=== PATIENT | female | born 1930 | race Caucasian/White ===

== ENCOUNTER 2016-07-26 07:22 | Day surgery (SDC) | payer MEDICARE, BC ==
[2016-07-26] MEDS ORDERED: Sodium Chloride 0.9% 1,000 ML IV SCH (08:30)
[2016-07-26] MEDS ORDERED: Lidocaine 1% with EPINEPHrine 1:100,000 50 ML MDV ONE (08:38)
[2016-07-26] MEDS ORDERED: Bacitracin Oint 1 GM U/D Packet ONE (08:38)
[2016-07-26] MEDS ORDERED: ceFAZolin 2 GM in Sodium Chloride 0.9% 50 ML IV ONE (09:00)
[2016-07-26] MEDS ORDERED: ceFAZolin 2 GM in Premix Bag 1 BAG IV ONE (09:00)
[2016-07-26] MEDS ORDERED: fentaNYL 100 MCG/2 ML SDV ONE (09:16)
[2016-07-26] MEDS ORDERED: Propofol 200 MG/20 ML SDV ONE (09:16)
[2016-07-26] MEDS ORDERED: traMADol 50 MG Tab PO ONE (10:48)
[2016-07-26 11:28] VITALS: BP 155/70
--- NOTE | 2016-07-26 14:14 | OR ---
DATE OF PROCEDURE: 07/26/2016 PROCEDURE: Temporal artery biopsy, right. FINDINGS: Pulsatile artery, right, consistent with temporal artery. COMPLICATIONS: None. CLEARING INSPECTOR: None. 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 RISKS: Risks, benefits, alternatives, and limitations, including, but not limited to infection, bleeding, and requirement for reoperation were explained and they wished to proceed. PROCEDURE IN DETAIL: The patient was placed in supine position with head turned to the right. The skin was anesthetized with 1% lidocaine. A 15 blade was used to make a 1.5 cm incision in standard fashion. This was carried down with needlepoint electrocautery. The pulsatile temporal artery was identified in a classic location. This was suture ligated proximally and distally. This was transected and sent for specimen. This was inspected for evidence of bleeding which there was none. The wound was then closed with 2 layers of 3-0 Vicryl and one layer of 4-0 Vicryl after being irrigated. These were both in interrupted fashion. Dermabond was applied. The patient tolerated the procedure well. Adin Miller MD /[id number]
== END 2016-07-26 11:25 | disposition home or self-care (01) ==
LOC: JP.SDS 07:22
PROVIDERS: ATTEND Surgery
DX: M31.6 Other giant cell arteritis (principal)
CPT/HCPCS: 37609; 76942; 82962; A9270; J0690; J2704; J3010; J7040; J7050; 88305; 88313

== ENCOUNTER 2016-11-13 01:46 | Inpatient (IN) | payer MEDICARE, BC ==
[2016-11-13] MEDS ORDERED: Ondansetron 4 MG/2 ML SDV IVPUSH ONE (02:05)
[2016-11-13] MEDS ORDERED: HYDROmorphone 0.5 MG/0.5 ML Syringe IVPUSH ONE (02:05)
[2016-11-13] MEDS ORDERED: Sodium Chloride 0.9% 1,000 ML IV SCH (02:15)
--- NOTE | 2016-11-13 04:13 | EDM.PDOC ---
ED HPI GENERAL MEDICAL PROBLEM - General Chief Complaint: Abdominal Pain Stated Complaint: MEDICAL [facility] Time Seen by Provider: 11/13/16 01:48 Source of Information: Reports: Patient History Limitations: Reports: No Limitations - History of Present Illness INITIAL COMMENTS - FREE TEXT/NARRATIVE: History of present illness: [85-year-old female presenting with a progressive history of abdominal distention and pain for the last week. She's had some nausea with this but no fevers or chills no vomiting she wonders if she might be constipated she's not had a good bowel movement in 3 days. Denies any dysuria she's had no abdominal surgeries. 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 Also history of diabetes and hypertension.] Review of systems: As per history of present illness and below otherwise all systems reviewed and negative. Past medical history: As per history of present illness and as reviewed below otherwise noncontributory. Surgical history: As per history of present illness and as reviewed below otherwise noncontributory. Social history: No reported history of drug or alcohol abuse. Family history: As per history of present illness and as reviewed below otherwise noncontributory. Physical exam: Gen.: In spite her presentation she is a very pleasant woman and appears to be in no acute distress. HEENT: Atraumatic, normocephalic, pupils reactive, negative for conjunctival pallor or scleral icterus, mucous membranes moist, throat clear, neck supple, nontender, trachea midline. Lungs: Clear to auscultation initially but after a liter and a half of fluids she does have some crackles in her bases but continues to sat well. Heart: S1S2, regular, with a 2/6 systolic ejection murmur Abdomen: Abdomen is drum like and distended. Pelvis: Stable nontender. Genitourinary: Deferred. Rectal: Deferred. Extremities: Atraumatic, negative for cords or calf pain. Neurovascular unremarkable. Trace edema Neuro: Awake, alert, oriented. [place] Coma Scale 15 moving all extremities Exam nonfocal. Diagnostics: [CBC complete dental panel UA EKG are done as well as abdominal pelvic CT most concerning finding is the CT which demonstrates possible pneumatosis involving the cecum and ascending colon with mild dilation of the ascending colon to 9 cm and then circumferential wall thickening of the distal transverse and descending colon with pericolic fat stranding around the descending colon the radiologist feels these findings are underwriting service representative of either colitis or ischemia] Therapeutics: [She's received IV fluids and IV Dilaudid and is feeling more comfortable she's remained stable] Impression: [Acute surgical abdomen] Plan: [Dr. Miller's been contacted and is coming in to see this patient. I've ordered additional lab such as typing cross INR EKG has been done and shows evidence for possible old inferior infarct and a first-degree AV block she is in a sinus rhythm though with a rate of 77 no current ischemia or infarct is noted.] Definitive disposition and diagnosis as appropriate pending reevaluation and review of above. Abdominal Pain Score (Numeric/FACES): 7 - Related Data Allergies Allergy/AdvReac Type Severity Reaction Status Date / Time lisinopril AdvReac Cough Verified 07/26/16 07:58 Home Meds: Home Meds Aspirin [Aspirin EC] 81 mg PO DAILY 11/27/14 [History] Carvedilol 1.5625 mg PO BID 11/27/14 [History] Cyanocobalamin (Vitamin B-12) [Vitamin B-12] 1,000 mcg PO DAILY 11/27/14 [ History] Folic Acid 1 mg PO DAILY 11/27/14 [History] Insulin Aspart [NovoLOG] 6 unit SQ PCDINNER 11/27/14 [History] Insulin Aspart [NovoLOG] 8 units SQ PCLUNCH 11/27/14 [History] Insulin Detemir [Levemir] 18 unit SQ QPM 11/27/14 [History] Pravastatin [Pravachol] 10 mg PO BEDTIME 11/27/14 [History] levETIRAcetam [Keppra] 250 mg PO BID 11/27/14 [History] Calcium Carbonate/Vitamin D3 [Calcium 600 + Vit D 200] 1 each PO DAILY 07/25/16 [History] Valsartan [Diovan] 40 mg PO DAILY 07/25/16 [History] predniSONE [Deltasone] 40 mg PO DAILY 07/25/16 [History] traMADol HCl [Ultram] 50 mg PO ASDIRECTED PRN 07/25/16 [History] Capsaicin [Zostrix 0.025% Crm] 60 gm .XX QID 11/13/16 [History] Ferrous Sulfate 325 mg PO ACBREAKFAST 11/13/16 [History] Insulin Aspart [NovoLOG] 10 units SUBCUT ACBREAKFAST 11/13/16 [History] Insulin Detemir [Levemir Flextouch] 14 unit SQ QAM 11/13/16 [History] Sennosides/Docusate Sodium [Sennosides-Docusate Sodium] 1 tab PO BID 11/13/16 [ History] Past Medical History HEENT History: Reports: Allergic Rhinitis, Cataract, Impaired Vision Cardiovascular History: Reports: Bypass, CAD, Heart Failure, Heart Murmur, High Cholesterol, Hypertension, SOB on Exertion Respiratory History: Reports: COPD, SOB Gastrointestinal History: Reports: None Genitourinary History: Reports: UTI, 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: Musculoskeletal History: Reports: Fracture, Osteoporosis Other Musculoskeletal History: 1996 Neurological History: Reports: Headaches, Chronic, Seizure, Vertigo Endocrine/Metabolic History: Reports: Diabetes, Type II, IDDM, Obesity/BMI 30+ Hematologic History: Reports: Anemia, Blood Transfusion(s) - Infectious Disease History Infectious Disease History: Reports: Chicken Pox, Measles, Mumps - Past Surgical History Cardiovascular Surgical History: Reports: Coronary Artery Bypass Respiratory Surgical History: Reports: None GI Surgical History: Reports: Colonoscopy Musculoskeletal Surgical History: Reports: Hip Replacement Social & Family History - Tobacco Use Smoking Status *Q: Never Smoker Second Hand Smoke Exposure: No - Caffeine Use Caffeine Use: Reports: Coffee - Alcohol Use Days Per Week of Alcohol Use: 0 - Recreational Drug Use Recreational Drug Use: No - Living Situation & Occupation Living situation: Reports: ED ROS GENERAL - Review of Systems Review Of Systems: ROS reveals no pertinent complaints other than HPI. ED EXAM, GI/ABD - Physical Exam Exam: See Below Course - Vital Signs Last Recorded V/S: Last Vital Signs Temp 36.6 C 11/13/16 03:59 Pulse 77 11/13/16 03:59 Resp 18 11/13/16 03:59 BP 140/70 11/13/16 03:59 Pulse Ox 94 L 11/13/16 03:59 - Orders/Labs/Meds Orders: Active Orders 24 hr Category Date Time Status EKG Documentation Completion [RC] ASDIRECTED Care 11/13/16 04:08 Ordered Abdomen Pelvis wo Cont [CT] Stat Exams 11/13/16 02:52 Taken Chest 1V Frontal [CR] Stat Exams 11/13/16 04:07 Ordered INR,PT,PROTHROMBIN TIME [COAG] Stat Lab 11/13/16 04:07 Ordered TROPONIN I [CHEM] Stat Lab 11/13/16 04:07 Ordered TYPE AND SCREEN [BBK] Stat Lab 11/13/16 04:09 Ordered UA W/MICROSCOPIC [URIN] Stat Lab 11/13/16 02:02 Uncollected Sodium Chloride 0.9% [Normal Saline] 1,000 ml Med 11/13/16 02:15 Active IV ASDIRECTED EKG 12 Lead [EK] Stat Ther 11/13/16 04:07 Ordered Medication Orders Sodium Chloride (Normal Saline) 1,000 mls @ 200 mls/hr IV ASDIRECTED JOHN Last Admin: 11/13/16 02:19 Dose: 200 mls/hr Labs: Laboratory Tests 11/13/16 11/13/16 11/13/16 Range/Units 02:16 02:16 02:16 WBC 13.1 H (4.5-11.0) K/uL RBC 3.50 (3.30-5.50) M/uL Hgb 9.7 L (12.0-15.0) g/dL Hct 31.0 L (36.0-48.0) % MCV 89 (80-98) fL MCH 28 (27-31) pg MCHC 31 L (32-36) % Plt Count 333 (150-400) K/uL Neut % (Auto) 84 H (36-66) % Lymph % (Auto) 7 L (24-44) % [place] % (Auto) 8 H (2-6) % Eos % (Auto) 1 L (2-4) % Baso % (Auto) 0 (0-1) % Sodium 134 L (140-148) mmol/L Potassium 4.0 (3.6-5.2) mmol/L Chloride 100 (100-108) mmol/L Carbon Dioxide 21 (21-32) mmol/L Anion Gap 17.0 H (5.0-14.0) mmol/L BUN 30 H (7-18) mg/dL Creatinine 1.5 H (0.6-1.0) mg/dL Est Cr Clr Drug Dosing 21.11 mL/min Estimated GFR (MDRD) 33 L (>60) Glucose 214 H (74-106) mg/dL Lactic Acid (0.4-2.0) mmol/L Calcium 7.9 L (8.5-10.1) mg/dL Total Bilirubin 0.5 (0.2-1.0) mg/dL AST 10 L (15-37) U/L ALT 11 L (12-78) U/L Alkaline Phosphatase 98 (46-116) U/L Total Protein 6.6 (6.4-8.2) g/dL Albumin 2.5 L (3.4-5.0) g/dL Globulin 4.1 H (2.3-3.5) g/dL Albumin/Globulin Ratio 0.6 L (1.2-2.2) Amylase 21 L (25-115) U/L Lipase 165 (73-393) U/L 11/13/16 Range/Units 02:16 WBC (4.5-11.0) K/uL RBC (3.30-5.50) M/uL Hgb (12.0-15.0) g/dL Hct (36.0-48.0) % MCV (80-98) fL MCH (27-31) pg MCHC (32-36) % Plt Count (150-400) K/uL Neut % (Auto) (36-66) % Lymph % (Auto) (24-44) % [place] % (Auto) (2-6) % Eos % (Auto) (2-4) % Baso % (Auto) (0-1) % Sodium (140-148) mmol/L Potassium (3.6-5.2) mmol/L Chloride (100-108) mmol/L Carbon Dioxide (21-32) mmol/L Anion Gap (5.0-14.0) mmol/L BUN (7-18) mg/dL Creatinine (0.6-1.0) mg/dL Est Cr Clr Drug Dosing mL/min Estimated GFR (MDRD) (>60) Glucose (74-106) mg/dL Lactic Acid 2.1 H (0.4-2.0) mmol/L Calcium (8.5-10.1) mg/dL Total Bilirubin (0.2-1.0) mg/dL AST (15-37) U/L ALT (12-78) U/L Alkaline Phosphatase (46-116) U/L Total Protein (6.4-8.2) g/dL Albumin (3.4-5.0) g/dL Globulin (2.3-3.5) g/dL Albumin/Globulin Ratio (1.2-2.2) Amylase (25-115) U/L Lipase (73-393) U/L Meds: Medications Generic Name Dose Route Start Last Admin Trade Name Freq PRN Reason Stop Dose Admin Sodium Chloride 1,000 mls @ 200 mls/hr 11/13/16 02:15 11/13/16 02:19 Normal Saline IV 200 mls/hr ASDIRECTED JOHN Administration Discontinued Medications Generic Name Dose Route Start Last Admin Trade Name Freq PRN Reason Stop Dose Admin Hydromorphone HCl 0.5 mg 11/13/16 02:05 11/13/16 02:18 Dilaudid IVPUSH 11/13/16 02:06 0.5 mg ONETIME ONE Administration Ondansetron HCl 4 mg 11/13/16 02:05 11/13/16 02:17 Zofran IVPUSH 11/13/16 02:06 4 mg ONETIME ONE Administration Departure - Departure Time of Disposition: 04:21 Disposition: Admitted As Inpatient 65 Condition: Fair Clinical Impression: Surgical abdomen - Discharge Information Forms: ED Department Discharge - My Orders Last 24 Hours: My Active Orders 11/13/16 02:02 UA W/MICROSCOPIC [URIN] Stat 11/13/16 02:15 Sodium Chloride 0.9% [Normal Saline] 1,000 ml IV ASDIRECTED 11/13/16 02:52 Abdomen Pelvis wo Cont [CT] Stat 11/13/16 04:07 Chest 1V Frontal [CR] Stat INR,PT,PROTHROMBIN TIME [COAG] Stat TROPONIN I [CHEM] Stat EKG 12 Lead [EK] Stat 11/13/16 04:08 EKG Documentation Completion [RC] ASDIRECTED 11/13/16 04:09 TYPE AND SCREEN [BBK] Stat - Assessment/Plan Last 24 Hours: My Active Orders 11/13/16 02:02 UA W/MICROSCOPIC [URIN] Stat 11/13/16 02:15 Sodium Chloride 0.9% [Normal Saline] 1,000 ml IV ASDIRECTED 11/13/16 02:52 Abdomen Pelvis wo Cont [CT] Stat 11/13/16 04:07 Chest 1V Frontal [CR] Stat INR,PT,PROTHROMBIN TIME [COAG] Stat TROPONIN I [CHEM] Stat EKG 12 Lead [EK] Stat 11/13/16 04:08 EKG Documentation Completion [RC] ASDIRECTED 11/13/16 04:09 TYPE AND SCREEN [BBK] Stat
[2016-11-13] MEDS ORDERED: Rocuronium 50 MG/5 ML Vial ONE (05:26)
[2016-11-13] MEDS ORDERED: Propofol 200 MG/20 ML SDV ONE (05:26)
[2016-11-13] MEDS ORDERED: Neostigmine Methylsulfate 1 MG/ML 5 ML Syringe ONE (05:26)
[2016-11-13] MEDS ORDERED: Glycopyrrolate 0.2 MG/ML 5 ML MDV ONE (05:26)
[2016-11-13] MEDS ORDERED: Succinylcholine 200 MG/10 ML MDV ONE (05:26)
[2016-11-13] MEDS ORDERED: Ondansetron 4 MG/2 ML SDV ONE (05:26)
[2016-11-13] MEDS ORDERED: Dexamethasone 4 MG/ML SDV ONE (05:26)
[2016-11-13] MEDS ORDERED: metroNIDAZOLE/Normal Saline 100 ML ONE (05:38)
[2016-11-13] MEDS ORDERED: ePHEDrine 50 MG/ML SDV ONE (05:56)
[2016-11-13] MEDS ORDERED: Docusate Sodium 100 MG Cap PO PRN (07:56)
[2016-11-13] MEDS ORDERED: Benzocaine/Cetylpyridinium/Menthol Lozenge MUCMEM PRN (07:56)
[2016-11-13] MEDS ORDERED: Zolpidem 5 MG Tab PO PRN (07:56)
[2016-11-13] MEDS ORDERED: diphenhydrAMINE 50 MG/ML SDV IVPUSH PRN (07:56)
[2016-11-13] MEDS ORDERED: Metoclopramide 10 MG/2 ML SDV IV PRN (07:56)
[2016-11-13] MEDS ORDERED: Bisacodyl 5 MG Tab PO PRN (07:56)
[2016-11-13] MEDS ORDERED: ceFAZolin 2 GM in Sodium Chloride 0.9% 100 ML IV SCH (08:00)
[2016-11-13] MEDS ORDERED: Piperacillin/Tazobactam/Dext 3.375 GM in Premix Bag 1 BAG IV SCH (08:00)
--- NOTE | 2016-11-13 08:25 | CR ---
Cardiomegaly. Low lung volumes. The lowest sternotomy wire again appears broken. Nodular densities a re similar compared to 12/27/2010. Difficult to exclude mild interstitial edema. Difficult to exclude an additional nodular density left midlung zone. Would first recommend this be followed with a two- view chest x-ray with improved inspiratory effort. Patient has history of calcified pleural plaques.
[2016-11-13] MEDS ORDERED: Naloxone 0.4 MG/ML SDV IV PRN (10:45)
--- NOTE | 2016-11-13 11:01 | PCM.CONS ---
H&P History of Present Illness - General Date of Service: 11/13/16 Admit Problem/Dx: Admission Diagnosis/Problem Admission Diagnosis/Problem Colon distention Source of Information: Patient, Family, Provider History Limitations: Reports: No Limitations - History of Present Illness Initial Comments - Free Text/Narative: Vicky was admitted to the intensive care unit after surgery early this morning. I was asked to see her by Dr. Miller regarding medical management of diabetes, coronary artery disease and chronic kidney disease. She was taken to the operating room from the emergency room after presenting with abdominal pain. CT scan suggested pneumatosis of the right colon as well as an area of inflammation such as colitis or ischemic colitis in the left colon. The exploratory laparotomy revealed ischemia of the right colon as well as a masslike conglomeration in the left colon concerning for neoplasm or possibly infection. 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 Patient has been clinically stable since that time. She reports minimal abdominal pain at this time. She has not had any shortness of breath or chest pain. Vital signs have been stable including blood pressure and heart rate. Urine output has been acceptable. DONTE drains are draining only slightly pink tinged serosanguineous fluid. Minimal output into her ileostomy at this time. Abdominal Pain Score (Numeric/FACES): 0 - Related Data Allergies/Adverse Reactions: Allergies Allergy/AdvReac Type Severity Reaction Status Date / Time lisinopril AdvReac Cough Verified 07/26/16 07:58 Home Medications: Home Meds Aspirin [Aspirin EC] 81 mg PO DAILY 11/27/14 [History] Carvedilol 1.5625 mg PO BID 11/27/14 [History] Cyanocobalamin (Vitamin B-12) [Vitamin B-12] 1,000 mcg PO DAILY 11/27/14 [ History] Folic Acid 1 mg PO DAILY 11/27/14 [History] Insulin Aspart [NovoLOG] 6 unit SQ PCDINNER 11/27/14 [History] Insulin Aspart [NovoLOG] 8 units SQ PCLUNCH 11/27/14 [History] Insulin Detemir [Levemir] 18 unit SQ QPM 11/27/14 [History] Pravastatin [Pravachol] 10 mg PO BEDTIME 11/27/14 [History] levETIRAcetam [Keppra] 250 mg PO BID 11/27/14 [History] Calcium Carbonate/Vitamin D3 [Calcium 600 + Vit D 200] 1 each PO DAILY 07/25/16 [History] Valsartan [Diovan] 40 mg PO DAILY 07/25/16 [History] predniSONE [Deltasone] 40 mg PO DAILY 07/25/16 [History] traMADol HCl [Ultram] 50 mg PO ASDIRECTED PRN 07/25/16 [History] Capsaicin [Zostrix 0.025% Crm] 60 gm .XX QID 11/13/16 [History] Ferrous Sulfate 325 mg PO ACBREAKFAST 11/13/16 [History] Insulin Aspart [NovoLOG] 10 units SUBCUT ACBREAKFAST 11/13/16 [History] Insulin Detemir [Levemir Flextouch] 14 unit SQ QAM 11/13/16 [History] Sennosides/Docusate Sodium [Sennosides-Docusate Sodium] 1 tab PO BID 11/13/16 [ History] Past Medical History HEENT History: Reports: Allergic Rhinitis, Cataract, Impaired Vision Cardiovascular History: Reports: Bypass, CAD, Heart Failure, Heart Murmur, High Cholesterol, Hypertension, SOB on Exertion Respiratory History: Reports: COPD, SOB Gastrointestinal History: Reports: None Genitourinary History: Reports: UTI, 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: Musculoskeletal History: Reports: Fracture, Osteoporosis Other Musculoskeletal History: 1996 Neurological History: Reports: Headaches, Chronic, Seizure, Vertigo Endocrine/Metabolic History: Reports: Diabetes, Type II, IDDM, Obesity/BMI 30+ Hematologic History: Reports: Anemia, Blood Transfusion(s) - Infectious Disease History Infectious Disease History: Reports: Chicken Pox, Measles, Mumps - Past Surgical History Cardiovascular Surgical History: Reports: Coronary Artery Bypass Respiratory Surgical History: Reports: None GI Surgical History: Reports: Colonoscopy Musculoskeletal Surgical History: Reports: Hip Replacement Social & Family History - Family History Cardiac: Denies: CAD - Tobacco Use Smoking Status *Q: Never Smoker Second Hand Smoke Exposure: No - Caffeine Use Caffeine Use: Reports: Coffee - Alcohol Use Days Per Week of Alcohol Use: 0 - Recreational Drug Use Recreational Drug Use: No - Living Situation & Occupation Living situation: Reports: H&P Review of Systems - Review of Systems: Review Of Systems: See Below Free Text/Narrative: A complete 12 point review of systems was obtained. Pertinent positives and negatives are noted in the history of present illness. All other systems were reviewed and were negative except as noted. Exam - Exam Exam: See Below - Vital Signs Vital Signs: Last Vital Signs Temp 36.6 C 11/13/16 03:59 Pulse 77 11/13/16 03:59 Resp 18 11/13/16 03:59 BP 140/70 11/13/16 03:59 Pulse Ox 94 L 11/13/16 03:59 Weight: 91.1 kg - Exam Quality Assessment: Supplemental Oxygen General: Alert, Oriented, Cooperative. No: Mild Distress HEENT: Conjunctiva Clear. No: Mucosa Moist & [place] (dry), Scleral Icterus Neck: Supple, Trachea Midline. No: Lymphadenopathy Lungs: Clear to Auscultation, Normal Respiratory Effort, Decreased Breath Sounds (mild at bases) Cardiovascular: Regular Rate, Regular Rhythm, Systolic Murmur GI/Abdominal Exam: No Distention, Tender, Abnormal Bowel Sounds (hypoactive), Other (ileostomy RLQ with trace bloody fluid in the bag. 2 DONTE drains with light pink drainage ) Extremities: Pedal Edema (trace bilateral ankle edema). No: Increased Warmth Peripheral Pulses: 1+: Dorsalis Pedis (L), Dorsalis Pedis (R) Skin: Warm, Dry Neuro Extensive - Mental Status: Alert, Oriented x3, Nl Response to Commands Neuro Extensive - Motor, Sensory, Reflexes: CN II-XII Intact. No: Dysarthria, Abnormal Motor, Tremor Psychiatric: Alert, Normal Affect - Patient Data Lab Results Last 24 hrs: Laboratory Results - last 24 hr 11/13/16 Range/Units 09:55 Urine Color Yellow Urine Appearance Turbid Urine pH 6.0 (4.5-8.0) Ur Specific [place] 1.020 (1.008-1.030) Urine Protein 30 H (NEGATIVE) mg/dL Urine Glucose (UA) Normal (NEGATIVE) mg/dL Urine Ketones Negative (NEGATIVE) mg/dL Urine Occult Blood Moderate (NEGATIVE) Urine Nitrite Negative (NEGATIVE) Urine Bilirubin Small (NEGATIVE) Urine Urobilinogen 1 (NORMAL) mg/dL Ur Leukocyte Esterase Large (NEGATIVE) Urine RBC 5-10 H (0-5) Urine WBC Packed H (0-5) Ur Epithelial Cells Moderate Amorphous Sediment Not seen Urine Bacteria Many Urine Mucus Rare Result Diagrams: 11/13/16 02:16 11/13/16 02:16 Imaging Impressions Last 24 hrs: CT abd/pelvis - images personally reviewed and radiologist's interpretation noted - probable pneumatosis of the cecum and ascending colon concerning for ischemia. Descending colon with wall thickening and surrounding fat stranding concerning for colitis or ischemia. Consult PN Assessment/Plan POD#: 0 Procedures: Procedures ASSAY OF MAGNESIUM (11/27/14) ASSAY THYROID STIM HORMONE (11/27/14) C-REACTIVE PROTEIN (11/27/14) COMPLETE CBC AUTOMATED (11/27/14) COMPLETE CBC W/AUTO DIFF WBC (11/27/14) COMPREHEN METABOLIC PANEL (11/27/14) CT HEAD/BRAIN W/O DYE (01/06/15) ECHO GUIDE FOR BIOPSY (07/26/16) EMERGENCY DEPT VISIT (05/11/15) EMERGENCY DEPT VISIT (05/11/15) EMERGENCY DEPT VISIT (01/06/15) EMERGENCY DEPT VISIT (01/06/15) EMERGENCY DEPT VISIT (11/27/14) EXTRACRANIAL BILAT STUDY (11/03/15) GAIT TRAINING THERAPY (11/27/14) GLUCOSE BLOOD TEST (07/26/16) INITIAL OBSERVATION CARE (11/27/14) LYME DISEASE ANTIBODY (11/27/14) METABOLIC PANEL TOTAL CA (11/27/14) OBSERVATION CARE DISCHARGE (11/27/14) PT EVALUATION (11/27/14) RBC SED RATE NONAUTOMATED (11/27/14) ROUTINE VENIPUNCTURE (11/27/14) SUBSEQUENT OBSERVATION CARE (11/27/14) TEMPORAL ARTERY PROCEDURE (07/26/16) THER/PROPH/DIAG INJ IV PUSH (11/27/14) THER/PROPH/DIAG INJ SC/IM (11/27/14) THERAPEUTIC ACTIVITIES (11/27/14) THERAPEUTIC EXERCISES (11/27/14) TX/PRO/DX INJ NEW DRUG ADDON (11/27/14) TX/PRO/DX INJ SAME DRUG PUPPET DEVELOPER (11/27/14) URINALYSIS AUTO W/SCOPE (11/27/14) VARICELLA-ZOSTER ANTIBODY (11/27/14) VITAMIN B-12 (11/27/14) (1) Pneumatosis intestinalis of large intestine SNOMED Code(s): 912201073 Code(s): K63.89 - OTHER SPECIFIED DISEASES OF INTESTINE Current Visit: Yes (2) Stage III chronic kidney disease SNOMED Code(s): 373024555 Code(s): N18.3 - CHRONIC KIDNEY DISEASE, STAGE 3 (MODERATE) Current Visit: Yes (3) Diabetes 1.5, managed as type 2 SNOMED Code(s): 077499557 Code(s): E13.9 - OTHER SPECIFIED DIABETES MELLITUS WITHOUT COMPLICATIONS Priority: Medium Current Visit: No (4) CAD (coronary artery disease), [place] coronary artery SNOMED Code(s): 3911110492477 Code(s): I25.10 - ATHSCL HEART DISEASE OF [place] CORONARY ARTERY W/O ANG PCTRS Priority: Low Current Visit: No Qualifiers: [place] vs. transplanted heart: [place] heart Associated angina: without angina Qualified Code(s): I25.10 - Atherosclerotic heart disease of [place] coronary artery without angina pectoris Problem List Initiated/Reviewed/Updated: Yes My Orders Last 24 Hours: My Active Orders 11/13/16 08:39 Blood Glucose Check, Bedside [RC] QIDACANDBED 11/13/16 08:40 Communication Order [RC] PRN Communication Order [RC] PRN Diabetes Education [RC] Click to Edit Notify Provider [RC] PRN 11/13/16 10:54 CULTURE URINE [RM] Routine 11/13/16 11:00 Insulin Aspart [NovoLOG] See Protocol SUBCUT QIDACANDBED Plan: Assessment and plan - Abdominal pain with concern for ischemic colitis - status post portray laparotomy with subtotal colectomy and ileostomy formation. Pathology pending. Clinically stable since the time of surgery. Volume status seems appropriate at this time. -Postop cares per surgical team -Agree with ongoing IV fluids Insulin-dependent diabetes mellitus - patient is nothing by mouth currently and a sliding scale insulin will be utilized throughout the day today. We may need to add some long-acting insulin once dextrose was added to her IV fluids. -Low-dose sliding scale insulin -Restart long-acting as indicated based on blood sugar trend Coronary artery disease - History of CABG a few years ago. No active ischemic symptoms and clinically stable. -Restart medical management including beta cassie as soon as it is safe postoperatively, hopefully tomorrow Stage III chronic kidney disease - [place] a level near baseline at this time. Urine output so far has been acceptable. -Close monitoring of urine output -Labs in the morning Disposition - anticipate discharge to home after the hospital stay Fernando Milan M.D. Requesting Provider: Dr Miller Date Consult Requested: 11/13/16 Reason for Consult: medical management of diabetes and CAD Patient History Reviewed: Yes Admission H&P Reviewed: No (n/a) Notified Requestor: No Time Spent (in minutes): 40
[2016-11-13] MEDS: Insulin Aspart 100 Units/ML 3 ML Pen SUBCUT SCH ×3 (12:27→19:55)
[2016-11-13] MEDS: Piperacillin/Tazobactam 2.25 GM in Sodium Chloride 0.9% 50 ML IV SCH ×2 (14:12→19:48)
[2016-11-13] MEDS: Sodium Chloride 0.9% 1,000 ML IV SCH (19:46)
[2016-11-13] MEDS ORDERED: Sodium Chloride 0.9% 500 ML IV ONE (22:13)
[2016-11-14] MEDS: Piperacillin/Tazobactam 2.25 GM in Sodium Chloride 0.9% 50 ML IV SCH ×4 (01:23→19:51)
[2016-11-14] MEDS: Sodium Chloride 0.9% 1,000 ML IV SCH ×3 (03:47→22:41)
[2016-11-14] MEDS ORDERED: Sodium Chloride 0.9% 500 ML IV ONE (06:12)
[2016-11-14] MEDS: Insulin Aspart 100 Units/ML 3 ML Pen SUBCUT SCH ×4 (06:28→20:54)
--- NOTE | 2016-11-14 07:31 | CONS ---
DATE OF SERVICE: 11/13/2016 REFERRING PHYSICIAN: CONSULTING PHYSICIAN: Adin Miller MD REASON FOR CONSULTATION: Abdominal pain. HISTORY OF PRESENT ILLNESS: An 85-year-old female with an ongoing history of abdominal pain, that has progressed over the last approximately 5 days. The patient reports she has not had bowel movement for greater than 4 to 5 days. She has some nausea. This is a new problem for her. PAST MEDICAL HISTORY: Significant for coronary bypass x4 approximately five years ago, cataract, heart failure, heart murmur, hypercholesterolemia, hypertension, shortness of breath (of note, the patient does not walk due to orthopedic reasons so fitness assessment cannot be determined), history of UTI, osteoporosis, type 2 diabetes, anemia, COPD, shortness of breath, history of chicken pox, measels, mumps . PAST SURGICAL HISTORY: Ankle surgery, hip surgery, CABG surgery as described above. SOCIAL HISTORY: She is and lives at home. FAMILY HISTORY: Noncontributory. REVIEW OF SYSTEMS: GENERAL: The patient is described as above. CARDIOVASCULAR: Mild cardial infarction [place] as above. RESPIRATORY: COPD as above. GASTROINTESTINAL: As above. GENITOURINARY: History of urinary tract infections. ENDOCRINE: Diabetes. NEUROLOGICAL: History of stroke with left hand weakness. PSYCH: No symptoms. The remainder of review of systems is reviewed and is negative. PHYSICAL EXAMINATION: VITAL SIGNS: Temperature 97.9, blood pressure 140/70, pulse 77, respirations 18, 94% on room air. GENERAL: The patient is resting with appropriate abdominal distention. HEENT: Pupils are equal. NECK: Supple. LUNGS: Wheezes bilaterally. HEART: Regular rhythm and rate. ABDOMEN: Distended, rebound, guarding. EXTREMITIES: Full range of motion. NEUROLOGIC: Alert and oriented x3. PSYCH: No gross depression. LABORATORY RESULTS: Show white blood cell count 40699, hemoglobin 9.7. Sodium 134, creatinine 1.5. Lactic acid 2.1. IMAGING: I did review the CT scan, which shows thickening of the transverse colon, sigmoid, and descending colon. ASSESSMENT AND PLAN: To the operating room for exploratory laparotomy. PLAN: The patient and I discussed risks, benefits, alternatives, and limitations, including, but not limited to infection and bleeding. We also discussed the possibility and probability of ostomy bowel resection, sepsis, sudden cardiac , respiratory failure, and other risks. We also discussed DNR type status. The patient was explained if she remains on the ventilator, would she like to stay on this short-term; the answer was yes. She states she does not have a living will or advanced directives. The patient will be taken to the operating room on an emergency basis. Adin Miller MD /[id number]
--- NOTE | 2016-11-14 07:34 | OR ---
DATE OF PROCEDURE: 11/14/2016 PROCEDURE: 1. 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 2. Colonoscopy (69619). 3. Mobilization of splenic flexure during the colon resection (12343). COMPLICATIONS: None. RESEARCH AND DEVELOPMENT ENGINEER: None. ANESTHESIA: General. INDICATIONS: An 85-year-old female, presents with an acute bowel obstruction pending perforation. Risks, benefits, alternatives, and limitations, including, but not limited to infection, bleeding, perforation, ostomy formation, cardiovascular failure including were explained to the patient. We also discussed this was an emergency surgery and due to her high of comorbidities, diabetes, stroke, CHF, COPD, and history of myocardial infarction; she has a high chance of morbidity. PROCEDURE IN DETAIL: The patient was placed in supine position. A midline abdominal incision was made. This was opened with electrocautery to the peritoneum which was opened sharply. A finger sweep technique was performed and no abnormalities noted. The abdomen was entered. Immediately, it was noted the colon was a "megacolon" with a diameter larger than 12 cm throughout entire colon. Also of note, there was a serosal tear/pending perforation noted of the cecum and the transverse colon. Furthermore, there is a density of the sigmoid colon. It was of unknown etiology. Therefore at this time, the colonoscope was introduced and advanced to evaluate this. The patient was obviously un prepped and the scope was unable to be advanced to approximately 30 cm. At this point, the decision between a colectomy and subtotal colectomy and a partial colectomy was made. Due to the patient's two perforations in two separate parts of the colon and the unknown mass or diverticulitis in the sigmoid colon, decision was made to perform a subtotal colectomy with ileostomy. This decision was based upon the safety of the patient and her comorbidities that she would not be able to tolerate a second surgery if required. Therefore, subtotal colectomy was commenced. Colon will be mobilized first by transecting the cecum with a blue load stapler and subsequent white load staplers with a combination with Harmonic Scalpel. The duodenum was identified and deflected away, not interactive with any way. A combination of white stapler and blue stapler loads were used to transect the relationship between the stomach and the transverse colon, the mesentery and its associated vascularity. This was then dissected down into the pelvis. The fallopian tube was noted to be adhered to the sigmoid colon. It was still unclear if this is a malignancy or chronic diverticulosis/diverticulitis as diverticula were noted during the colonoscope. A black load stapler would be used to transect the rectum. Of note, there was still inflammation left, this was not dissected due to the unknown etiology of this and the lack of availability of pathological diagnoses. This specimen was then sent for pathological evaluation. The abdomen was thoroughly irrigated. There was very minimal bleeding noted. Just that I did clear one layer of warm irrigation. The liver was swept and no masses were noted. There was no peritoneal studding noted. The fascia was then closed with #1 Vicryl in a running fashion. The subcutaneous tissues were irrigated and drain was placed over this. Phyllis were applied and dressings were applied. The ileostomy was then created in a standard fashion prior to closure of the abdominal wall. A 15 blade was used to create an ostomy location about the size 50 cent piece or so. Three fingers were passed through the abdominal wall. An ileostomy was procured through the abdominal wall. Once the abdomen was closed, this was created using interrupted Vicryl sutures after opening up the ileostomy. This was carried on the right side due to the location of the ilium and the reluctance to mobilize or resect any further vascular supply in the abdomen to move it to the left. Once this was created, a bag was placed on the ostomy. The patient was transferred to the intensive care unit. Adin Miller MD /[id number]
[2016-11-14] MEDS ORDERED: fentaNYL 100 MCG/2 ML SDV ONE (08:47)
[2016-11-14] MEDS ORDERED: Propofol 200 MG/20 ML SDV ONE (08:48)
--- NOTE | 2016-11-14 09:26 | PCM.SURGPN ---
[id number]: No Symptoms HEENT: Reports: No Symptoms - Patient Data Vitals - Most Recent: Last Vital Signs Temp 97.2 F 11/14/16 09:15 Pulse 68 11/14/16 09:20 Resp 18 11/14/16 09:20 BP 101/34 L 11/14/16 09:20 Pulse Ox 100 11/14/16 09:20 Weight - Most Recent: 91.1 kg I&O - Last 24 Hours: Intake & Output 11/13/16 11/14/16 11/14/16 22:59 06:59 14:59 Intake Total 1250 2397 Output Total 405 385 Balance 845 2011 Lab Results Last 24 Hrs: Laboratory Results - last 24 hr 11/13/16 11/14/16 11/14/16 Range/Units 09:55 04:40 04:40 WBC 9.5 (4.5-11.0) K/uL RBC 2.92 L (3.30-5.50) M/uL Hgb 8.0 L (12.0-15.0) g/dL Hct 26.0 L (36.0-48.0) % MCV 89 (80-98) fL MCH 27 (27-31) pg MCHC 31 L (32-36) % Plt Count 298 (150-400) K/uL Sodium 138 L (140-148) mmol/L Potassium 4.3 (3.6-5.2) mmol/L Chloride 107 (100-108) mmol/L Carbon Dioxide 22 (21-32) mmol/L Anion Gap 13.3 (5.0-14.0) mmol/L BUN 32 H (7-18) mg/dL Creatinine 1.5 H (0.6-1.0) mg/dL Est Cr Clr Drug Dosing 21.11 mL/min Estimated GFR (MDRD) 33 L (>60) Glucose 239 H (74-106) mg/dL Calcium 7.1 L (8.5-10.1) mg/dL Urine Color Yellow Urine Appearance Turbid Urine pH 6.0 (4.5-8.0) Ur Specific [place] 1.020 (1.008-1.030) Urine Protein 30 H (NEGATIVE) mg/dL Urine Glucose (UA) Normal (NEGATIVE) mg/dL Urine Ketones Negative (NEGATIVE) mg/dL Urine Occult Blood Moderate (NEGATIVE) Urine Nitrite Negative (NEGATIVE) Urine Bilirubin Small (NEGATIVE) Urine Urobilinogen 1 (NORMAL) mg/dL Ur Leukocyte Esterase Large (NEGATIVE) Urine RBC 5-10 H (0-5) Urine WBC Packed H (0-5) Ur Epithelial Cells Moderate Amorphous Sediment Not seen Urine Bacteria Many Urine Mucus Rare Med Orders - Current: Current Medications Benzocaine/Menthol (Cepacol Sore Throat) 1 lozenge MUCMEM Q1H PRN PRN Reason: Sore Throat Bisacodyl (Dulcolax) 5 mg PO DAILY PRN PRN Reason: Constipation Diphenhydramine HCl (Benadryl) 50 mg IVPUSH Q4H PRN PRN Reason: Itching Docusate Sodium (Colace) 100 mg PO BID PRN PRN Reason: Constipation Fentanyl Citrate (Fentanyl In Ns 20 Mcg/Ml 30 Ml Workforce Consultant) 0 mcg IV ASDIRECTED PRN; Protocol PRN Reason: PAIN Sodium Chloride (Normal Saline) 1,000 mls @ 125 mls/hr IV ASDIRECTED [facility] Last Admin: 11/14/16 03:47 Dose: 125 mls/hr Piperacillin Sod/Tazobactam (Sod 2.25 gm/ Sodium Chloride) 50 mls @ 100 mls/hr IV Q6H [facility] Last Admin: 11/14/16 08:14 Dose: 100 mls/hr Insulin Aspart (Novolog) 0 unit SUBCUT QIDACANDBED [facility] PRN Reason: Protocol Last Admin: 11/14/16 06:28 Dose: 2 units Metoclopramide HCl (Reglan) 10 mg IV Q6H PRN PRN Reason: Nausea Naloxone HCl (Narcan) 0.1 mg IV ASDIRECTED PRN PRN Reason: RESP Senna/Docusate Sodium (Senna Plus) 1 tab PO BID PRN PRN Reason: Constipation Zolpidem Tartrate (Ambien) 5 mg PO BEDTIME PRN PRN Reason: Insomnia Discontinued Medications Dexamethasone (Dexamethasone) Confirm Administered Dose 4 mg .ROUTE .STK-MED ONE Stop: 11/13/16 05:27 Ephedrine Sulfate (Ephedrine Sulfate) Confirm Administered Dose 50 mg .ROUTE .STK-MED ONE Stop: 11/13/16 05:57 Fentanyl (Sublimaze) Confirm Administered Dose 100 mcg .ROUTE .STK-MED ONE Stop: 11/14/16 08:48 Fentanyl Citrate (Fentanyl 0.05 Mg/Ml Vial) Confirm Administered Dose 50 mcg .ROUTE .STK-MED ONE Stop: 11/13/16 05:31 Glycopyrrolate (Robinul) Confirm Administered Dose 1 mg .ROUTE .STK-MED ONE Stop: 11/13/16 05:27 Heparin Sodium (Porcine) (Heparin Lock Flush 100 Units/Ml) Confirm Administered Dose 1,000 units .ROUTE .STK-MED ONE Stop: 11/14/16 08:23 Hydromorphone HCl (Dilaudid) 0.5 mg IVPUSH ONETIME ONE Stop: 11/13/16 02:06 Last Admin: 11/13/16 02:18 Dose: 0.5 mg Sodium Chloride (Normal Saline) 1,000 mls @ 200 mls/hr IV ASDIRECTED [facility] Last Admin: 11/13/16 02:19 Dose: 200 mls/hr Metronidazole (Flagyl 500 Mg In Ns 100 Ml) Confirm Administered Dose 100 mls @ as directed .ROUTE .STK-MED ONE Stop: 11/13/16 05:39 Cefazolin Sodium 2 gm/ Sodium (Chloride) 100 mls @ 100 mls/hr IV Q8H [facility] Stop: 11/13/16 16:59 Piperacillin/Tazobactam/ (Dextrose 3.375 gm/ Premix) 50 mls @ 100 mls/hr IV Q6H [facility] Last Admin: 11/13/16 09:05 Dose: 100 mls/hr Sodium Chloride (Normal Saline) 500 mls @ 500 mls/hr IV .BOLUS ONE Stop: 11/13/16 23:12 Last Admin: 11/13/16 22:27 Dose: 500 mls/hr Sodium Chloride (Normal Saline) 500 mls @ 500 mls/hr IV .BOLUS ONE Stop: 11/14/16 07:11 Last Admin: 11/14/16 06:27 Dose: 500 mls/hr Neostigmine Methylsulfate (Neostigmine) Confirm Administered Dose 5 mg .ROUTE .STK-MED ONE Stop: 11/13/16 05:27 Ondansetron HCl (Zofran) 4 mg IVPUSH ONETIME ONE Stop: 11/13/16 02:06 Last Admin: 11/13/16 02:17 Dose: 4 mg Ondansetron HCl (Zofran) Confirm Administered Dose 4 mg .ROUTE .STK-MED ONE Stop: 11/13/16 05:27 Propofol (Diprivan 20 Ml) Confirm Administered Dose 200 mg .ROUTE .STK-MED ONE Stop: 11/13/16 05:27 Propofol (Diprivan 20 Ml) Confirm Administered Dose 200 mg .ROUTE .STK-MED ONE Stop: 11/14/16 08:49 Rocuronium [place] (Zemuron) Confirm Administered Dose 50 mg .ROUTE .STK-MED ONE Stop: 11/13/16 05:27 Succinylcholine Chloride (Quelicin) Confirm Administered Dose 200 mg .ROUTE .STK -MED ONE Stop: 11/13/16 05:27 - Exam Wound/Incisions: Healing Well General: Alert HEENT: Pupils Equal Lungs: Clear to Auscultation Cardiovascular: Regular Rate - Problem List Review Problem List Initiated/Reviewed/Updated: Yes - My Orders Last 24 Hours: Active Orders 24 hr Category Date Time Status Blood Glucose Check, Bedside [RC] QIDACANDBED Care 11/13/16 08:39 Active Communication Order [RC] PRN Care 11/13/16 08:40 Active Communication Order [RC] PRN Care 11/13/16 08:40 Active Diabetes Education [RC] Click to Edit Care 11/13/16 08:40 Active Notify Provider [RC] PRN Care 11/13/16 08:40 Active CXR [Chest 1V Frontal] [CR] Routine Exams 11/14/16 09:11 Ordered Chest 1V Frontal [CR] Routine Exams 11/14/16 05:00 Taken BASIC METABOLIC PANEL,BMP [CHEM] Timed Lab 11/15/16 05:11 Ordered CBC W/O DIFF,HEMOGRAM [HEME] Timed Lab 11/15/16 05:11 Ordered Insulin Aspart [NovoLOG] Med 11/13/16 11:00 Active See Protocol SUBCUT QIDACANDBED Naloxone [Narcan] Med 11/13/16 10:45 Active 0.1 mg IV ASDIRECTED PRN Piperacillin/Tazobactam [Zosyn] 2.25 gm Med 11/13/16 14:00 Active Sodium Chloride 0.9% [Normal Saline] 50 ml IV Q6H fentaNYL/Normal Saline [fentaNYL in NS 20 MCG/ML 30 ML Med 11/13/16 10:45 Active PROFESSOR OF ENVIRONMENTAL ENGINEERING] 0 mcg IV ASDIRECTED PRN Transfuse Fresh Frozen Plasma [COMM] Routine Oth 11/14/16 09:25 Ordered Transfuse Red Blood Cells [COMM] Urgent Oth 11/14/16 09:12 Ordered Medication Orders Benzocaine/Menthol (Cepacol Sore Throat) 1 lozenge MUCMEM Q1H PRN PRN Reason: Sore Throat Bisacodyl (Dulcolax) 5 mg PO DAILY PRN PRN Reason: Constipation Diphenhydramine HCl (Benadryl) 50 mg IVPUSH Q4H PRN PRN Reason: Itching Docusate Sodium (Colace) 100 mg PO BID PRN PRN Reason: Constipation Fentanyl Citrate (Fentanyl In Ns 20 Mcg/Ml 30 Ml Workforce Consultant) 0 mcg IV ASDIRECTED PRN; Protocol PRN Reason: PAIN Sodium Chloride (Normal Saline) 1,000 mls @ 125 mls/hr IV ASDIRECTED [facility] Last Admin: 11/14/16 03:47 Dose: 125 mls/hr Infusion: 11/14/16 03:46 Dose: 125 mls/hr Admin: 11/13/16 19:46 Dose: 125 mls/hr Piperacillin Sod/Tazobactam (Sod 2.25 gm/ Sodium Chloride) 50 mls @ 100 mls/hr IV Q6H [facility] Last Admin: 11/14/16 08:14 Dose: 100 mls/hr Admin: 11/14/16 01:23 Dose: 100 mls/hr Admin: 11/13/16 19:48 Dose: 100 mls/hr Admin: 11/13/16 14:12 Dose: 100 mls/hr Insulin Aspart (Novolog) 0 unit SUBCUT QIDACANDBED [facility] PRN Reason: Protocol Last Admin: 11/14/16 06:28 Dose: 2 units Admin: 11/13/16 19:55 Dose: 2 units Admin: 11/13/16 18:20 Dose: 2 units Admin: 11/13/16 12:27 Dose: 2 units Metoclopramide HCl (Reglan) 10 mg IV Q6H PRN PRN Reason: Nausea Naloxone HCl (Narcan) 0.1 mg IV ASDIRECTED PRN PRN Reason: RESP Senna/Docusate Sodium (Senna Plus) 1 tab PO BID PRN PRN Reason: Constipation Zolpidem Tartrate (Ambien) 5 mg PO BEDTIME PRN PRN Reason: Insomnia - Assessment Assessment (Free Text/Narrative):: We will hold lovenox today due to low HGB. And keep victor for accutae I and O's
--- NOTE | 2016-11-14 09:40 | PN ---
DATE OF SERVICE: 11/14/2016 SUBJECTIVE: The patient is doing quite well today. Pain is well controlled. No nausea, vomiting, shortness of breath, or chest pain. OBJECTIVE: VITAL SIGNS: Stable. Temperature 97.2, blood pressure 119/44, respirations 16, 98% on 2 L. CARDIOVASCULAR: Regular rate. RESPIRATORY: Mild crackles bilaterally. ABDOMEN: Dressings intact. Ostomy intact. LABORATORY RESULTS: Show a hemoglobin of 8.0, white blood cell count is normal, creatinine is stable. ASSESSMENT: Status post subtotal colectomy. PLAN: The patient will be transfused 2 units of packed red blood cells today. In addition a central line will be placed. Hospitalist service will continue to work with us and we will keep the antibiotic going at this time. Adin Miller MD /[id number]
[2016-11-14] MEDS ORDERED: Furosemide 20 MG/2 ML VIAL IVPUSH ONE (09:50)
--- NOTE | 2016-11-14 11:00 | CR ---
Mild cardiomegaly. Nodular densities redemonstrated. No focal consolidation. Pulmonary vascular cult ure is mildly prominent compared to most recent exam.
--- NOTE | 2016-11-14 11:01 | CR ---
Left subclavian catheter with distal tip mid to upper SVC. No pneumothorax the left. Trace left pleu ral effusion. Prominent vasculature slightly prominent. No definitive focal consolidation.
--- NOTE | 2016-11-14 15:19 | OR ---
DATE OF PROCEDURE: 11/13/2016 PROCEDURE: Left subclavian vein central line placement. COMPLICATIONS: None. TREE CLIMBER: None. ANESTHESIA: Mac/local. INDICATIONS: An 85-year-old female in intensive care unit requiring a central line for multiple blood products and medications. RISKS: Risks, benefits, alternatives, and limitations, including, but not limited to infection, bleeding, and pneumothorax were explained to the patient and she wishes to proceed. PROCEDURE IN DETAIL: The patient was placed in supine position. Left chest was prepped and draped. The skin was anesthetized with 1% lidocaine prior to introduction. A micropuncture needle kit was introduced and the left subclavian vein was accessed on the first pass. A 14,000 wire was then exchanged via the micropuncture kit to a 35,000 wire. The patient's subclavian vein was in approximation like all subclavian vein to the clavicle, but there was a small amount of bending noted with the introduction. The second wire was then introduced and the area was dilated, and the subclavian central line was introduced. All three ports were flushed. This was secured in place with suture. Chlorhexidine was then reapplied to the area and Telfa was applied. The patient tolerated the procedure well. Adin Miller MD /[id number]
--- NOTE | 2016-11-14 16:51 | PCM.CONSN ---
- General Info Date of Service: 11/14/16 Functional Status: Reports: Pain Controlled - Review of Systems General: Reports: Weakness. Denies: Fever Pulmonary: Denies: Shortness of Breath Gastrointestinal: Denies: Abdominal Pain Systems Review Comment:: No acute events overnight. She is not having any fevers. She did have low urine output which responded to a fluid bolus overnight. Hemoglobin has drifted down but no strong evidence for bleeding. Minimal DONTE drain drainage. No significant fluid or stool in the ileostomy as of yet. She does not report much in the way of abdominal pain. No complaints of shortness of breath. Moderate elevation of blood sugars. - Patient Data Vitals - Most Recent: Last Vital Signs Temp 36.6 C 11/14/16 14:00 Pulse 77 11/14/16 16:00 Resp 21 H 11/14/16 16:00 BP 151/49 H 11/14/16 16:00 Pulse Ox 100 11/14/16 16:00 Weight - Most Recent: 91.1 kg I&O - Last 24 Hours: Intake & Output 11/14/16 11/14/16 11/14/16 06:59 14:59 22:59 Intake Total 2397 370 Output Total 385 260 880 Balance 2011 110 -880 Lab Results Last 24 Hours: Laboratory Results - last 24 hr 11/14/16 11/14/16 Range/Units 04:40 04:40 WBC 9.5 (4.5-11.0) K/uL RBC 2.92 L (3.30-5.50) M/uL Hgb 8.0 L (12.0-15.0) g/dL Hct 26.0 L (36.0-48.0) % MCV 89 (80-98) fL MCH 27 (27-31) pg MCHC 31 L (32-36) % Plt Count 298 (150-400) K/uL Sodium 138 L (140-148) mmol/L Potassium 4.3 (3.6-5.2) mmol/L Chloride 107 (100-108) mmol/L Carbon Dioxide 22 (21-32) mmol/L Anion Gap 13.3 (5.0-14.0) mmol/L BUN 32 H (7-18) mg/dL Creatinine 1.5 H (0.6-1.0) mg/dL Est Cr Clr Drug Dosing 21.11 mL/min Estimated GFR (MDRD) 33 L (>60) Glucose 239 H (74-106) mg/dL Calcium 7.1 L (8.5-10.1) mg/dL Med Orders - Current: Current Medications Benzocaine/Menthol (Cepacol Sore Throat) 1 lozenge MUCMEM Q1H PRN PRN Reason: Sore Throat Bisacodyl (Dulcolax) 5 mg PO DAILY PRN PRN Reason: Constipation Diphenhydramine HCl (Benadryl) 50 mg IVPUSH Q4H PRN PRN Reason: Itching Docusate Sodium (Colace) 100 mg PO BID PRN PRN Reason: Constipation Fentanyl Citrate (Fentanyl In Ns 20 Mcg/Ml 30 Ml [place] [employer]) 0 mcg IV ASDIRECTED PRN; Protocol PRN Reason: PAIN Sodium Chloride (Normal Saline) 1,000 mls @ 125 mls/hr IV ASDIRECTED [facility] Last Admin: 11/14/16 13:44 Dose: 125 mls/hr Piperacillin Sod/Tazobactam (Sod 2.25 gm/ Sodium Chloride) 50 mls @ 100 mls/hr IV Q6H [facility] Last Admin: 11/14/16 15:24 Dose: 100 mls/hr Insulin Aspart (Novolog) 0 unit SUBCUT QIDACANDBED [facility] PRN Reason: Protocol Last Admin: 11/14/16 10:57 Dose: 2 units Metoclopramide HCl (Reglan) 10 mg IV Q6H PRN PRN Reason: Nausea Naloxone HCl (Narcan) 0.1 mg IV ASDIRECTED PRN PRN Reason: RESP Senna/Docusate Sodium (Senna Plus) 1 tab PO BID PRN PRN Reason: Constipation Zolpidem Tartrate (Ambien) 5 mg PO BEDTIME PRN PRN Reason: Insomnia Discontinued Medications Dexamethasone (Dexamethasone) Confirm Administered Dose 4 mg .ROUTE .STK-MED ONE Stop: 11/13/16 05:27 Ephedrine Sulfate (Ephedrine Sulfate) Confirm Administered Dose 50 mg .ROUTE .STK-MED ONE Stop: 11/13/16 05:57 Fentanyl (Sublimaze) Confirm Administered Dose 100 mcg .ROUTE .STK-MED ONE Stop: 11/14/16 08:48 Fentanyl Citrate (Fentanyl 0.05 Mg/Ml Vial) Confirm Administered Dose 50 mcg .ROUTE .STK-MED ONE Stop: 11/13/16 05:31 Furosemide (Lasix) 10 mg IVPUSH ONETIME ONE Stop: 11/14/16 09:51 Last Admin: 11/14/16 12:16 Dose: 10 mg Glycopyrrolate (Robinul) Confirm Administered Dose 1 mg .ROUTE .STK-MED ONE Stop: 11/13/16 05:27 Heparin Sodium (Porcine) (Heparin Lock Flush 100 Units/Ml) Confirm Administered Dose 1,000 units .ROUTE .STK-MED ONE Stop: 11/14/16 08:23 Last Admin: 11/14/16 09:29 Dose: 1,000 units Hydromorphone HCl (Dilaudid) 0.5 mg IVPUSH ONETIME ONE Stop: 11/13/16 02:06 Last Admin: 11/13/16 02:18 Dose: 0.5 mg Sodium Chloride (Normal Saline) 1,000 mls @ 200 mls/hr IV ASDIRECTED [facility] Last Admin: 11/13/16 02:19 Dose: 200 mls/hr Metronidazole (Flagyl 500 Mg In Ns 100 Ml) Confirm Administered Dose 100 mls @ as directed .ROUTE .STK-MED ONE Stop: 11/13/16 05:39 Cefazolin Sodium 2 gm/ Sodium (Chloride) 100 mls @ 100 mls/hr IV Q8H [facility] Stop: 11/13/16 16:59 Piperacillin/Tazobactam/ (Dextrose 3.375 gm/ Premix) 50 mls @ 100 mls/hr IV Q6H [facility] Last Admin: 11/13/16 09:05 Dose: 100 mls/hr Sodium Chloride (Normal Saline) 500 mls @ 500 mls/hr IV .BOLUS ONE Stop: 11/13/16 23:12 Last Admin: 11/13/16 22:27 Dose: 500 mls/hr Sodium Chloride (Normal Saline) 500 mls @ 500 mls/hr IV .BOLUS ONE Stop: 11/14/16 07:11 Last Admin: 11/14/16 06:27 Dose: 500 mls/hr Neostigmine Methylsulfate (Neostigmine) Confirm Administered Dose 5 mg .ROUTE .STK-MED ONE Stop: 11/13/16 05:27 Ondansetron HCl (Zofran) 4 mg IVPUSH ONETIME ONE Stop: 11/13/16 02:06 Last Admin: 11/13/16 02:17 Dose: 4 mg Ondansetron HCl (Zofran) Confirm Administered Dose 4 mg .ROUTE .STK-MED ONE Stop: 11/13/16 05:27 Propofol (Diprivan 20 Ml) Confirm Administered Dose 200 mg .ROUTE .STK-MED ONE Stop: 11/13/16 05:27 Propofol (Diprivan 20 Ml) Confirm Administered Dose 200 mg .ROUTE .STK-MED ONE Stop: 11/14/16 08:49 Rocuronium [place] (Zemuron) Confirm Administered Dose 50 mg .ROUTE .STK-MED ONE Stop: 11/13/16 05:27 Succinylcholine Chloride (Quelicin) Confirm Administered Dose 200 mg .ROUTE .STK -MED ONE Stop: 11/13/16 05:27 - Exam Quality Assessment: Supplemental Oxygen General: Alert, Oriented, Cooperative, No Acute Distress Neck: Supple Lungs: Clear to Auscultation, Normal Respiratory Effort Cardiovascular: Regular Rate, Regular Rhythm GI/Abdominal Exam: Soft, No Distention, Abnormal Bowel Sounds (Hypoactive) Extremities: Pedal Edema (Mild bilateral ankle edema). No: Increased Warmth Skin: Warm, Dry Psy/Mental Status: Alert, Normal Affect Consult PN Assessment/Plan POD#: 1 Procedures: Procedures ASSAY OF MAGNESIUM (11/27/14) ASSAY THYROID STIM HORMONE (11/27/14) C-REACTIVE PROTEIN (11/27/14) COMPLETE CBC AUTOMATED (11/27/14) COMPLETE CBC W/AUTO DIFF WBC (11/27/14) COMPREHEN METABOLIC PANEL (11/27/14) CT HEAD/BRAIN W/O DYE (01/06/15) ECHO GUIDE FOR BIOPSY (07/26/16) EMERGENCY DEPT VISIT (05/11/15) EMERGENCY DEPT VISIT (05/11/15) EMERGENCY DEPT VISIT (01/06/15) EMERGENCY DEPT VISIT (01/06/15) EMERGENCY DEPT VISIT (11/27/14) EXTRACRANIAL BILAT STUDY (11/03/15) GAIT TRAINING THERAPY (11/27/14) GLUCOSE BLOOD TEST (07/26/16) INITIAL OBSERVATION CARE (11/27/14) LYME DISEASE ANTIBODY (11/27/14) METABOLIC PANEL TOTAL CA (11/27/14) OBSERVATION CARE DISCHARGE (11/27/14) PT EVALUATION (11/27/14) RBC SED RATE NONAUTOMATED (11/27/14) ROUTINE VENIPUNCTURE (11/27/14) SUBSEQUENT OBSERVATION CARE (11/27/14) TEMPORAL ARTERY PROCEDURE (07/26/16) THER/PROPH/DIAG INJ IV PUSH (11/27/14) THER/PROPH/DIAG INJ SC/IM (11/27/14) THERAPEUTIC ACTIVITIES (11/27/14) THERAPEUTIC EXERCISES (11/27/14) TX/PRO/DX INJ NEW DRUG ADDON (11/27/14) TX/PRO/DX INJ SAME DRUG DISTRICT CAPTAIN (11/27/14) URINALYSIS AUTO W/SCOPE (11/27/14) VARICELLA-ZOSTER ANTIBODY (11/27/14) VITAMIN B-12 (11/27/14) (1) Pneumatosis intestinalis of large intestine SNOMED Code(s): 534552432 Code(s): K63.89 - OTHER SPECIFIED DISEASES OF INTESTINE Current Visit: Yes (2) Stage III chronic kidney disease SNOMED Code(s): 674782816 Code(s): N18.3 - CHRONIC KIDNEY DISEASE, STAGE 3 (MODERATE) Current Visit: Yes (3) Diabetes 1.5, managed as type 2 SNOMED Code(s): 469344136 Code(s): E13.9 - OTHER SPECIFIED DIABETES MELLITUS WITHOUT COMPLICATIONS Priority: Medium Current Visit: No (4) CAD (coronary artery disease), [place] coronary artery SNOMED Code(s): 0326249341621 Code(s): I25.10 - ATHSCL HEART DISEASE OF [place] CORONARY ARTERY W/O ANG PCTRS Priority: Low Current Visit: No Qualifiers: [place] vs. 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 Pathology pending. Clinically stable and doing well other than mild decrease in urine output. Hemoglobin has drifted down after surgery. -Postop cares per surgical team -Agree with transfusion planned for today -Agree with ongoing IV fluids Insulin-dependent diabetes mellitus - currently nothing by mouth, blood sugars moderately elevated but otherwise stable. -Low-dose sliding scale insulin -Restart long-acting as indicated based on blood sugar trend Coronary artery disease - History of CABG a few years ago. No active ischemic symptoms and clinically stable. -Restart medical management including beta cassie as soon as it is safe postoperatively, hopefully tomorrow Stage III chronic kidney disease - creatinine level near baseline at this time. Urine output so far today has been acceptable. -Close monitoring of urine output -Labs in the morning Disposition - anticipate discharge to home versus the long term after the hospital stay Fernando Milan M.D.
[2016-11-14] MEDS: fentaNYL/Normal Saline 600 MCG/30 ML PCA Vial IV PRN ×2 (17:40→19:49)
[2016-11-15] MEDS: Piperacillin/Tazobactam 2.25 GM in Sodium Chloride 0.9% 50 ML IV SCH ×4 (02:58→19:54)
[2016-11-15] MEDS: Sodium Chloride 0.9% 1,000 ML IV SCH (07:45)
[2016-11-15] MEDS ORDERED: Dextrose 5%-Lactated Ringers 1,000 ML IV SCH (08:00)
[2016-11-15] MEDS: Insulin Aspart 100 Units/ML 3 ML Pen SUBCUT SCH ×4 (08:28→20:35)
[2016-11-15] MEDS ORDERED: VALSARTAN 40 MG PO SCH (09:30)
[2016-11-15] MEDS ORDERED: 1: AA 5%/Calcium/D15W/Lytes 1,000 ML with MVI, Adult with Vitamin K 10 ML, Chromium/Copp IV SCH ×3 (10:30)
--- NOTE | 2016-11-15 11:20 | PCM.CONSN ---
- General Info Date of Service: 11/15/16 Functional Status: Reports: Pain Controlled, Tolerating Diet, Ambulating - Review of Systems General: Reports: Weakness Pulmonary: Denies: Shortness of Breath Gastrointestinal: Reports: Abdominal Pain (minimal) Systems Review Comment:: no acute events overnight. Tolerated blood transfusion well. Hemoglobin has responded nicely. She reports only minimal abdominal pain at this time. No complaints of shortness of breath though she does require a small quantity of supplemental oxygen. Blood sugars have been acceptable. She is now starting to pass stool into her ileostomy bag. She has not had any fevers. Urine culture with mixed cuate. - Patient Data Vitals - Most Recent: Last Vital Signs Temp 37.4 C 11/15/16 07:00 Pulse 78 11/15/16 09:00 Resp 27 H 11/15/16 09:00 BP 159/63 H 11/15/16 09:00 Pulse Ox 98 11/15/16 09:00 Weight - Most Recent: 91.1 kg I&O - Last 24 Hours: Intake & Output 11/14/16 11/15/16 11/15/16 22:59 06:59 14:59 Intake Total 1591 1398 360 Output Total 1425 460 235 Balance 166 938 125 Lab Results Last 24 Hours: Laboratory Results - last 24 hr 11/15/16 11/15/16 Range/Units 05:50 05:50 WBC 8.7 (4.5-11.0) K/uL RBC 3.55 (3.30-5.50) M/uL Hgb 10.0 L D (12.0-15.0) g/dL Hct 30.8 L (36.0-48.0) % MCV 87 (80-98) fL MCH 28 (27-31) pg MCHC 33 (32-36) % Plt Count 295 (150-400) K/uL Sodium 139 L (140-148) mmol/L Potassium 3.9 (3.6-5.2) mmol/L Chloride 108 (100-108) mmol/L Carbon Dioxide 23 (21-32) mmol/L Anion Gap 11.9 (5.0-14.0) mmol/L BUN 26 H (7-18) mg/dL Creatinine 1.3 H (0.6-1.0) mg/dL Est Cr Clr Drug Dosing 24.36 mL/min Estimated GFR (MDRD) 39 L (>60) Glucose 206 H (74-106) mg/dL Calcium 7.3 L (8.5-10.1) mg/dL Med Orders - Current: Current Medications Aspirin (Halfprin) 81 mg PO DAILY [facility] Benzocaine/Menthol (Cepacol Sore Throat) 1 lozenge MUCMEM Q1H PRN PRN Reason: Sore Throat Bisacodyl (Dulcolax) 5 mg PO DAILY PRN PRN Reason: Constipation Carvedilol (Coreg) 1.5625 mg PO BID [facility] Diphenhydramine HCl (Benadryl) 50 mg IVPUSH Q4H PRN PRN Reason: Itching Docusate Sodium (Colace) 100 mg PO BID PRN PRN Reason: Constipation Fentanyl Citrate (Fentanyl In Ns 20 Mcg/Ml 30 Ml [employer] Tender) 0 mcg IV ASDIRECTED PRN; Protocol PRN Reason: PAIN Last Admin: 11/14/16 19:49 Dose: 600 mcg Sodium Chloride (Normal Saline) 1,000 mls @ 125 mls/hr IV ASDIRECTED [facility] Last Admin: 11/15/16 07:45 Dose: 125 mls/hr Piperacillin Sod/Tazobactam (Sod 2.25 gm/ Sodium Chloride) 50 mls @ 100 mls/hr IV Q6H [facility] Last Admin: 11/15/16 08:31 Dose: 100 mls/hr Dextrose/Lactated Ringer's (Dextrose 5%-Lactated Ringers) 1,000 mls @ 25 mls/ hr IV ASDIRECTED [facility] Last Admin: 11/15/16 08:19 Dose: 25 mls/hr Multivitamins/Minerals 10 ml/Chromium/Copper/Manganese/Seleni/Zn 1 ml/ Amino Ac/ Electrol/Dextrose/Calcium 1,011 mls @ 60 mls/hr IV .BY DURATION [facility] Stop: 11/15/16 23:59 Last Admin: 11/15/16 10:53 Dose: 60 mls/hr Amino Ac/Electrol/Dextrose/Calcium (Clinimix E 08/26) 1,000 mls @ 60 mls/hr IV .BY DURATION [facility] Stop: 11/15/16 23:59 Multivitamins/Minerals 10 ml/Chromium/Copper/Manganese/Seleni/Zn 1 ml/ Amino Ac/ Electrol/Dextrose/Calcium 1,011 mls @ 60 mls/hr IV .BY DURATION [facility] Amino Ac/Electrol/Dextrose/Calcium (Clinimix E 08/26) 1,000 mls @ 60 mls/hr IV .BY DURATION [facility] Insulin Aspart (Novolog) 0 unit SUBCUT QIDACANDBED [facility] PRN Reason: Protocol Last Admin: 11/15/16 08:28 Dose: 2 units Levetiracetam (Keppra) 250 mg PO BID [facility] Metoclopramide HCl (Reglan) 10 mg IV Q6H PRN PRN Reason: Nausea Naloxone HCl (Narcan) 0.1 mg IV ASDIRECTED PRN PRN Reason: RESP Senna/Docusate Sodium (Senna Plus) 1 tab PO BID PRN PRN Reason: Constipation Valsartan (Diovan) 40 mg PO DAILY [facility] Zolpidem Tartrate (Ambien) 5 mg PO BEDTIME PRN PRN Reason: Insomnia Discontinued Medications Dexamethasone (Dexamethasone) Confirm Administered Dose 4 mg .ROUTE .STK-MED ONE Stop: 11/13/16 05:27 Ephedrine Sulfate (Ephedrine Sulfate) Confirm Administered Dose 50 mg .ROUTE .STK-MED ONE Stop: 11/13/16 05:57 Fentanyl (Sublimaze) Confirm Administered Dose 100 mcg .ROUTE .STK-MED ONE Stop: 11/14/16 08:48 Fentanyl Citrate (Fentanyl 0.05 Mg/Ml Vial) Confirm Administered Dose 50 mcg .ROUTE .STK-MED ONE Stop: 11/13/16 05:31 Furosemide (Lasix) 10 mg IVPUSH ONETIME ONE Stop: 11/14/16 09:51 Last Admin: 11/14/16 12:16 Dose: 10 mg Glycopyrrolate (Robinul) Confirm Administered Dose 1 mg .ROUTE .STK-MED ONE Stop: 11/13/16 05:27 Heparin Sodium (Porcine) (Heparin Lock Flush 100 Units/Ml) Confirm Administered Dose 1,000 units .ROUTE .STK-MED ONE Stop: 11/14/16 08:23 Last Admin: 11/14/16 09:29 Dose: 1,000 units Hydromorphone HCl (Dilaudid) 0.5 mg IVPUSH ONETIME ONE Stop: 11/13/16 02:06 Last Admin: 11/13/16 02:18 Dose: 0.5 mg Sodium Chloride (Normal Saline) 1,000 mls @ 200 mls/hr IV ASDIRECTED [facility] Last Admin: 11/13/16 02:19 Dose: 200 mls/hr Metronidazole (Flagyl 500 Mg In Ns 100 Ml) Confirm Administered Dose 100 mls @ as directed .ROUTE .STK-MED ONE Stop: 11/13/16 05:39 Cefazolin Sodium 2 gm/ Sodium (Chloride) 100 mls @ 100 mls/hr IV Q8H [facility] Stop: 11/13/16 16:59 Piperacillin/Tazobactam/ (Dextrose 3.375 gm/ Premix) 50 mls @ 100 mls/hr IV Q6H [facility] Last Admin: 11/13/16 09:05 Dose: 100 mls/hr Sodium Chloride (Normal Saline) 500 mls @ 500 mls/hr IV .BOLUS ONE Stop: 11/13/16 23:12 Last Admin: 11/13/16 22:27 Dose: 500 mls/hr Sodium Chloride (Normal Saline) 500 mls @ 500 mls/hr IV .BOLUS ONE Stop: 11/14/16 07:11 Last Admin: 11/14/16 06:27 Dose: 500 mls/hr Neostigmine Methylsulfate (Neostigmine) Confirm Administered Dose 5 mg .ROUTE .STK-MED ONE Stop: 11/13/16 05:27 Ondansetron HCl (Zofran) 4 mg IVPUSH ONETIME ONE Stop: 11/13/16 02:06 Last Admin: 11/13/16 02:17 Dose: 4 mg Ondansetron HCl (Zofran) Confirm Administered Dose 4 mg .ROUTE .STK-MED ONE Stop: 11/13/16 05:27 Propofol (Diprivan 20 Ml) Confirm Administered Dose 200 mg .ROUTE .STK-MED ONE Stop: 11/13/16 05:27 Propofol (Diprivan 20 Ml) Confirm Administered Dose 200 mg .ROUTE .STK-MED ONE Stop: 11/14/16 08:49 Rocuronium [place] (Zemuron) Confirm Administered Dose 50 mg .ROUTE .STK-MED ONE Stop: 11/13/16 05:27 Succinylcholine Chlor[place] (Quelicin) Confirm Administered Dose 200 mg .ROUTE .STK -MED ONE Stop: 11/13/16 05:27 - Exam Quality Assessment: Supplemental Oxygen General: Alert, Oriented, Cooperative, No Acute Distress Neck: Supple Lungs: Clear to Auscultation, Normal Respiratory Effort Cardiovascular: Regular Rate, Regular Rhythm, Murmurs GI/Abdominal Exam: Soft, No Distention Extremities: Normal Inspection, No Pedal Edema. No: Increased Warmth Skin: Warm, Dry Psy/Mental Status: Alert, Normal Affect Consult PN Assessment/Plan POD#: 2 Procedures: Procedures ASSAY OF MAGNESIUM (11/27/14) ASSAY THYROID STIM HORMONE (11/27/14) C-REACTIVE PROTEIN (11/27/14) COMPLETE CBC AUTOMATED (11/27/14) COMPLETE CBC W/AUTO DIFF WBC (11/27/14) COMPREHEN METABOLIC PANEL (11/27/14) CT HEAD/BRAIN W/O DYE (01/06/15) ECHO GUIDE FOR BIOPSY (07/26/16) EMERGENCY DEPT VISIT (05/11/15) EMERGENCY DEPT VISIT (05/11/15) EMERGENCY DEPT VISIT (01/06/15) EMERGENCY DEPT VISIT (01/06/15) EMERGENCY DEPT VISIT (11/27/14) EXTRACRANIAL BILAT STUDY (11/03/15) GAIT TRAINING THERAPY (11/27/14) GLUCOSE BLOOD TEST (07/26/16) INITIAL OBSERVATION CARE (11/27/14) LYME DISEASE ANTIBODY (11/27/14) METABOLIC PANEL TOTAL CA (11/27/14) OBSERVATION CARE DISCHARGE (11/27/14) PT EVALUATION (11/27/14) RBC SED RATE NONAUTOMATED (11/27/14) ROUTINE VENIPUNCTURE (11/27/14) SUBSEQUENT OBSERVATION CARE (11/27/14) TEMPORAL ARTERY PROCEDURE (07/26/16) THER/PROPH/DIAG INJ IV PUSH (11/27/14) THER/PROPH/DIAG INJ SC/IM (11/27/14) THERAPEUTIC ACTIVITIES (11/27/14) THERAPEUTIC EXERCISES (11/27/14) TX/PRO/DX INJ NEW DRUG ADDON (11/27/14) TX/PRO/DX INJ SAME DRUG NURSE CLINICAL (11/27/14) URINALYSIS AUTO W/SCOPE (11/27/14) VARICELLA-ZOSTER ANTIBODY (11/27/14) VITAMIN B-12 (11/27/14) (1) Pneumatosis intestinalis of large intestine SNOMED Code(s): 403151450 Code(s): K63.89 - OTHER SPECIFIED DISEASES OF INTESTINE Current Visit: Yes (2) Stage III chronic kidney disease SNOMED Code(s): 751765216 Code(s): N18.3 - CHRONIC KIDNEY DISEASE, STAGE 3 (MODERATE) Current Visit: Yes (3) Diabetes 1.5, managed as type 2 SNOMED Code(s): 537879735 Code(s): E13.9 - OTHER SPECIFIED DIABETES MELLITUS WITHOUT COMPLICATIONS Priority: Medium Current Visit: No (4) CAD (coronary artery disease), [place] coronary artery SNOMED Code(s): 1623554061649 Code(s): I25.10 - ATHSCL HEART DISEASE OF [place] CORONARY ARTERY W/O ANG PCTRS Priority: Low Current Visit: No Qualifiers: [place] vs. 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 Pathology pending. Clinically stable and ileostomy has no started to produce stool. Responded well to blood transfusion yesterday. -Postop cares per surgical team -full liquid diet initiated this morning Insulin-dependent diabetes mellitus - blood sugars mildly elevated, diet started today. -Low-dose sliding scale insulin -Restart long-acting insulin Coronary artery disease - History of CABG a few years ago. No active ischemic symptoms and clinically stable. -Restart medical management including beta cassie Stage III chronic kidney disease - creatinine level near baseline at this time. Urine output has been acceptable. -Close monitoring of urine output -Labs in the morning Disposition - anticipate discharge to home with home care versus the jail after the hospital stay Fernando Milan M.D.
[2016-11-15] MEDS: Carvedilol 3.125 MG Tab PO SCH ×2 (11:28→20:36)
[2016-11-15] MEDS: Aspirin 81 MG Tab.EC PO SCH (11:31)
[2016-11-15] MEDS: levETIRAcetam 250 MG Tab PO SCH ×2 (11:31→20:37)
[2016-11-15] MEDS: Insulin Detemir 100 Units/ML 3 ML Pen SUBCUT SCH (11:36)
[2016-11-16] MEDS: Piperacillin/Tazobactam 2.25 GM in Sodium Chloride 0.9% 50 ML IV SCH ×4 (02:10→19:59)
[2016-11-16] MEDS ORDERED: 1: AA 5%/Calcium/D15W/Lytes 1,000 ML with MVI, Adult with Vitamin K 10 ML, Chromium/Copp IV SCH ×6 (03:00→20:00)
[2016-11-16] MEDS: Insulin Aspart 100 Units/ML 3 ML Pen SUBCUT SCH ×4 (07:37→21:20)
[2016-11-16] MEDS: Aspirin 81 MG Tab.EC PO SCH (08:26)
[2016-11-16] MEDS: Carvedilol 3.125 MG Tab PO SCH ×2 (08:27→21:04)
[2016-11-16] MEDS: levETIRAcetam 250 MG Tab PO SCH ×2 (08:28→21:03)
[2016-11-16] MEDS: Insulin Detemir 100 Units/ML 3 ML Pen SUBCUT SCH (08:33)
[2016-11-16] MEDS: Potassium Phosphates 15 MMOLE in Sodium Chloride 0.9% 100 ML IV SCH ×2 (10:26→12:37)
[2016-11-16] MEDS: Furosemide 20 MG/2 ML VIAL IV SCH ×2 (10:26→15:19)
--- NOTE | 2016-11-16 16:51 | PCM.CONSN ---
- General Info Date of Service: 11/16/16 Functional Status: Reports: Pain Controlled, Tolerating Diet - Review of Systems General: Reports: Weakness. Denies: Fever Gastrointestinal: Reports: Abdominal Pain (Minimal) Systems Review Comment:: No acute events overnight. Blood sugars have risen with the initiation of TPN. Blood pressures have been trending up throughout the night. His she continues to report minimal abdominal pain. No complaints of shortness of breath. She does have some mild lower extremity edema. She continues to have output into her ileostomy. - Patient Data Vitals - Most Recent: Last Vital Signs Temp 37.2 C 11/16/16 14:00 Pulse 71 11/16/16 16:00 Resp 26 H 11/16/16 16:00 BP 210/68 H 11/16/16 16:00 Pulse Ox 98 11/16/16 16:00 Weight - Most Recent: 91.1 kg I&O - Last 24 Hours: Intake & Output 11/16/16 11/16/16 11/16/16 06:59 14:59 22:59 Intake Total 1058 360 Output Total 670 1570 1800 Balance 388 -1210 -1800 Lab Results Last 24 Hours: Laboratory Results - last 24 hr 11/16/16 11/16/16 11/16/16 Range/Units 04:48 04:48 09:14 WBC 9.8 (4.5-11.0) K/uL RBC 3.66 (3.30-5.50) M/uL Hgb 9.9 L (12.0-15.0) g/dL Hct 31.9 L (36.0-48.0) % MCV 87 (80-98) fL MCH 27 (27-31) pg MCHC 31 L (32-36) % Plt Count 306 (150-400) K/uL Sodium 138 L (140-148) mmol/L Potassium 4.0 (3.6-5.2) mmol/L Chloride 107 (100-108) mmol/L Carbon Dioxide 27 (21-32) mmol/L Anion Gap 8.0 (5.0-14.0) mmol/L BUN 24 H (7-18) mg/dL Creatinine 1.3 H (0.6-1.0) mg/dL Est Cr Clr Drug Dosing 24.36 mL/min Estimated GFR (MDRD) 39 L (>60) Glucose 378 H (74-106) mg/dL Calcium 7.8 L (8.5-10.1) mg/dL Phosphorus 2.5 (2.5-4.9) mg/dL Magnesium 2.2 (1.8-2.4) mg/dL Total Bilirubin 0.4 (0.2-1.0) mg/dL AST 8 L (15-37) U/L ALT 8 L (12-78) U/L Alkaline Phosphatase 76 (46-116) U/L Jhw-S-Nlmssdefcte Pept 3629 H (5-450) pg/mL Total Protein 5.3 L (6.4-8.2) g/dL Albumin 1.7 L (3.4-5.0) g/dL Globulin 3.6 H (2.3-3.5) g/dL Albumin/Globulin Ratio 0.5 L (1.2-2.2) Med Orders - Current: Current Medications Aspirin (Halfprin) 81 mg PO DAILY [facility] Last Admin: 11/16/16 08:26 Dose: 81 mg Benzocaine/Menthol (Cepacol Sore Throat) 1 lozenge MUCMEM Q1H PRN PRN Reason: Sore Throat Bisacodyl (Dulcolax) 5 mg PO DAILY PRN PRN Reason: Constipation Carvedilol (Coreg) 1.5625 mg PO BID [facility] Last Admin: 11/16/16 08:27 Dose: 1.5625 mg Diphenhydramine HCl (Benadryl) 50 mg IVPUSH Q4H PRN PRN Reason: Itching Docusate Sodium (Colace) 100 mg PO BID PRN PRN Reason: Constipation Fentanyl Citrate (Fentanyl In Ns 20 Mcg/Ml 30 Ml Crt) 0 mcg IV ASDIRECTED PRN; Protocol PRN Reason: PAIN Last Admin: 11/14/16 19:49 Dose: 600 mcg Piperacillin Sod/Tazobactam (Sod 2.25 gm/ Sodium Chloride) 50 mls @ 100 mls/hr IV Q6H [facility] Last Admin: 11/16/16 14:04 Dose: 100 mls/hr Dextrose/Lactated Ringer's (Dextrose 5%-Lactated Ringers) 1,000 mls @ 25 mls/ hr IV ASDIRECTED [facility] Last Admin: 11/15/16 08:19 Dose: 25 mls/hr Multivitamins/Minerals 10 ml/Chromium/Copper/Manganese/Seleni/Zn 1 ml/ Amino Ac/ Electrol/Dextrose/Calcium 1,011 mls @ 60 mls/hr IV .BY DURATION [facility] Stop: 11/16/16 18:00 Last Admin: 11/16/16 03:25 Dose: 60 mls/hr Amino Ac/Electrol/Dextrose/Calcium (Clinimix E 5/15) 1,000 mls @ 60 mls/hr IV .BY DURATION [facility] Stop: 11/16/16 18:00 Multivitamins/Minerals 10 ml/Chromium/Copper/Manganese/Seleni/Zn 1 ml/ Amino Ac/ Electrol/Dextrose/Calcium 1,011 mls @ 60 mls/hr IV .BY DURATION [facility] Amino Ac/Electrol/Dextrose/Calcium (Clinimix E 5/15) 1,000 mls @ 60 mls/hr IV .BY DURATION [facility] Albumin Human (Albumin 25%) 25 gm in 100 mls @ 25 mls/hr IV Q24H [facility] Stop: 11/19/16 13:59 Last Admin: 11/16/16 10:26 Dose: 25 mls/hr Insulin Aspart (Novolog) 0 unit SUBCUT QIDACANDBED [facility] PRN Reason: Protocol Last Admin: 11/16/16 11:51 Dose: 5 units Insulin Detemir (Levemir) 7 unit SUBCUT DAILY [facility] Last Admin: 11/16/16 08:33 Dose: 7 units Levetiracetam (Keppra) 250 mg PO BID [facility] Last Admin: 11/16/16 08:28 Dose: 250 mg Metoclopramide HCl (Reglan) 10 mg IV Q6H PRN PRN Reason: Nausea Naloxone HCl (Narcan) 0.1 mg IV ASDIRECTED PRN PRN Reason: RESP Senna/Docusate Sodium (Senna Plus) 1 tab PO BID PRN PRN Reason: Constipation Valsartan (Diovan) 40 mg PO DAILY [facility] Last Admin: 11/16/16 08:28 Dose: 40 mg Zolpidem Tartrate (Ambien) 5 mg PO BEDTIME PRN PRN Reason: Insomnia Discontinued Medications Dexamethasone (Dexamethasone) Confirm Administered Dose 4 mg .ROUTE .[facility] ONE Stop: 11/13/16 05:27 Ephedrine Sulfate (Ephedrine Sulfate) Confirm Administered Dose 50 mg .ROUTE .[facility] Stop: 11/13/16 05:57 Fentanyl (Sublimaze) Confirm Administered Dose 100 mcg .ROUTE .[facility] Stop: 11/14/16 08:48 Fentanyl Citrate (Fentanyl 0.05 Mg/Ml Vial) Confirm Administered Dose 50 mcg .ROUTE .[facility] Stop: 11/13/16 05:31 Furosemide (Lasix) 10 mg IVPUSH ONETIME ONE Stop: 11/14/16 09:51 Last Admin: 11/14/16 12:16 Dose: 10 mg Furosemide (Lasix) 20 mg IV Q6H [facility] Stop: 11/16/16 15:31 Last Admin: 11/16/16 15:19 Dose: 20 mg Glycopyrrolate (Robinul) Confirm Administered Dose 1 mg .ROUTE .[facility] Stop: 11/13/16 05:27 Heparin Sodium (Porcine) (Heparin Lock Flush 100 Units/Ml) Confirm Administered Dose 1,000 units .ROUTE .[facility] Stop: 11/14/16 08:23 Last Admin: 11/14/16 09:29 Dose: 1,000 units Hydromorphone HCl (Dilaudid) 0.5 mg IVPUSH ONETIME ONE Stop: 11/13/16 02:06 Last Admin: 11/13/16 02:18 Dose: 0.5 mg Sodium Chloride (Normal Saline) 1,000 mls @ 200 mls/hr IV ASDIRECTED [facility] Last Admin: 11/13/16 02:19 Dose: 200 mls/hr Metronidazole (Flagyl 500 Mg In Ns 100 Ml) Confirm Administered Dose 100 mls @ as directed .ROUTE .[facility] Stop: 11/13/16 05:39 Sodium Chloride (Normal Saline) 1,000 mls @ 125 mls/hr IV ASDIRECTED [facility] Last Admin: 11/15/16 07:45 Dose: 125 mls/hr Cefazolin Sodium 2 gm/ Sodium (Chloride) 100 mls @ 100 mls/hr IV Q8H [facility] Stop: 11/13/16 16:59 Piperacillin/Tazobactam/ (Dextrose 3.375 gm/ Premix) 50 mls @ 100 mls/hr IV Q6H [facility] Last Admin: 11/13/16 09:05 Dose: 100 mls/hr Sodium Chloride (Normal Saline) 500 mls @ 500 mls/hr IV .[facility] ONE Stop: 11/13/16 23:12 Last Admin: 11/13/16 22:27 Dose: 500 mls/hr Sodium Chloride (Normal Saline) 500 mls @ 500 mls/hr IV .[facility] ONE Stop: 11/14/16 07:11 Last Admin: 11/14/16 06:27 Dose: 500 mls/hr Multivitamins/Minerals 10 ml/Chromium/Copper/Manganese/Seleni/Zn 1 ml/ Amino Ac/ Electrol/Dextrose/Calcium 1,011 mls @ 60 mls/hr IV .BY DURATION [facility] Stop: 11/15/16 23:59 Last Admin: 11/15/16 10:53 Dose: 60 mls/hr Amino Ac/Electrol/Dextrose/Calcium (Clinimix E 5/15) 1,000 mls @ 60 mls/hr IV .BY DURATION [facility] Stop: 11/15/16 23:59 Potassium Phosphate 15 mmole/ (Sodium Chloride) 105 mls @ 35 mls/hr IV Q3H [facility] Stop: 11/16/16 16:29 Last Admin: 11/16/16 12:37 Dose: 35 mls/hr Neostigmine Methylsulfate (Neostigmine) Confirm Administered Dose 5 mg .ROUTE .[facility] ONE Stop: 11/13/16 05:27 Ondansetron HCl (Zofran) 4 mg IVPUSH ONETIME ONE Stop: 11/13/16 02:06 Last Admin: 11/13/16 02:17 Dose: 4 mg Ondansetron HCl (Zofran) Confirm Administered Dose 4 mg .ROUTE .[facility] ONE Stop: 11/13/16 05:27 Propofol (Diprivan 20 Ml) Confirm Administered Dose 200 mg .ROUTE .[facility] ONE Stop: 11/13/16 05:27 Propofol (Diprivan 20 Ml) Confirm Administered Dose 200 mg .ROUTE .STK-[facility] ONE Stop: 11/14/16 08:49 Rocuronium [place] (Zemuron) Confirm Administered Dose 50 mg .ROUTE .STK-[facility] ONE Stop: 11/13/16 05:27 Succinylcholine Chloride (Quelicin) Confirm Administered Dose 200 mg .ROUTE .STK -MED ONE Stop: 11/13/16 05:27 - Exam Quality Assessment: Supplemental Oxygen General: Alert, Oriented, Cooperative, No Acute Distress Neck: Supple Lungs: Clear to Auscultation, Normal Respiratory Effort, Decreased Breath Sounds (Mild at the bases) Cardiovascular: Regular Rate, Regular Rhythm, Murmurs GI/Abdominal Exam: Normal Bowel Sounds, Soft, No Distention Extremities: Pedal Edema (Mild bilateral ankle edema). No: Increased Warmth Skin: Warm, Dry Psy/Mental Status: Alert, Normal Affect Consult PN Assessment/Plan POD#: 3 Procedures: Procedures ASSAY OF MAGNESIUM (11/27/14) ASSAY THYROID STIM HORMONE (11/27/14) C-REACTIVE PROTEIN (11/27/14) COMPLETE CBC AUTOMATED (11/27/14) COMPLETE CBC W/AUTO DIFF WBC (11/27/14) COMPREHEN METABOLIC PANEL (11/27/14) CT HEAD/BRAIN W/O DYE (01/06/15) ECHO GUIDE FOR BIOPSY (07/26/16) EMERGENCY DEPT VISIT (05/11/15) EMERGENCY DEPT VISIT (05/11/15) EMERGENCY DEPT VISIT (01/06/15) EMERGENCY DEPT VISIT (01/06/15) EMERGENCY DEPT VISIT (11/27/14) EXTRACRANIAL BILAT STUDY (11/03/15) GAIT TRAINING THERAPY (11/27/14) GLUCOSE BLOOD TEST (07/26/16) INITIAL OBSERVATION CARE (11/27/14) LYME DISEASE ANTIBODY (11/27/14) METABOLIC PANEL TOTAL CA (11/27/14) OBSERVATION CARE DISCHARGE (11/27/14) PT EVALUATION (11/27/14) RBC SED RATE NONAUTOMATED (11/27/14) ROUTINE VENIPUNCTURE (11/27/14) SUBSEQUENT OBSERVATION CARE (11/27/14) TEMPORAL ARTERY PROCEDURE (07/26/16) THER/PROPH/DIAG INJ IV PUSH (11/27/14) THER/PROPH/DIAG INJ SC/IM (11/27/14) THERAPEUTIC ACTIVITIES (11/27/14) THERAPEUTIC EXERCISES (11/27/14) TX/PRO/DX INJ NEW DRUG ADDON (11/27/14) TX/PRO/DX INJ SAME DRUG AIRLINE HOSTESS (11/27/14) URINALYSIS AUTO W/SCOPE (08/16/15) VARICELLA-ZOSTER ANTIBODY (11/27/14) VITAMIN B-12 (11/27/14) (1) Pneumatosis intestinalis of large intestine SNOMED Code(s): 856501276 Code(s): K63.89 - OTHER SPECIFIED DISEASES OF INTESTINE Current Visit: Yes (2) Stage III chronic kidney disease SNOMED Code(s): 187819910 Code(s): N18.3 - CHRONIC KIDNEY DISEASE, STAGE 3 (MODERATE) Current Visit: Yes (3) Diabetes 1.5, managed as type 2 SNOMED Code(s): 967094191 Code(s): E13.9 - OTHER SPECIFIED DIABETES MELLITUS WITHOUT COMPLICATIONS Priority: Medium Current Visit: No (4) CAD (coronary artery disease), [place] coronary artery SNOMED Code(s): 6329832025971 Code(s): I25.10 - ATHSCL HEART DISEASE OF [place] CORONARY ARTERY W/O ANG PCTRS Priority: Low Current Visit: No Qualifiers: [place] vs. 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 Pathology pending. Clinically doing well with minimal pain and ongoing ostomy output -Postop cares per surgical team Accelerated hypertension - blood pressure rising throughout the day. I suspect volume is contributing some and she will be receiving diuresis throughout the day. -Continue blood pressure medications -Agree with diuresis Insulin-dependent diabetes mellitus - blood sugars elevated over 300 after TPN initiated. Insulin in the TPN was increased this morning. -Low-dose sliding scale insulin -Continue long-acting insulin -Agree with extra insulin in the TPN Coronary artery disease - History of CABG a few years ago. No active ischemic symptoms and clinically stable. -Continue medical management including beta cassie Stage III chronic kidney disease - creatinine level stable and near baseline. -Close monitoring of urine output -Labs in the morning Disposition - anticipate discharge to home with home care versus the [facility] after the hospital stay Fernando Milan M.D.
[2016-11-16] MEDS ORDERED: Furosemide 20 MG/2 ML VIAL IVPUSH ONE (22:00)
[2016-11-17] MEDS: fentaNYL/Normal Saline 600 MCG/30 ML PCA Vial IV PRN (01:20)
[2016-11-17] MEDS: Piperacillin/Tazobactam 2.25 GM in Sodium Chloride 0.9% 50 ML IV SCH ×4 (02:15→19:57)
[2016-11-17] MEDS: Insulin Aspart 100 Units/ML 3 ML Pen SUBCUT SCH ×5 (07:47→21:24)
[2016-11-17] MEDS ORDERED: Acetaminophen/HYDROcodone 325-5 MG Tab PO PRN (07:53)
[2016-11-17] MEDS ORDERED: Potassium Chloride 40 MEQ in Premix Bag 1 BAG IV ONE (08:00)
[2016-11-17] MEDS: Carvedilol 3.125 MG Tab PO SCH ×2 (08:57→21:21)
[2016-11-17] MEDS: Furosemide 20 MG/2 ML VIAL IV SCH ×2 (08:57→19:53)
[2016-11-17] MEDS: Aspirin 81 MG Tab.EC PO SCH (08:58)
[2016-11-17] MEDS: levETIRAcetam 250 MG Tab PO SCH ×2 (08:58→21:21)
[2016-11-17] MEDS: Insulin Detemir 100 Units/ML 3 ML Pen SUBCUT SCH ×2 (09:02→21:25)
--- NOTE | 2016-11-17 10:10 | PCM.CONSN ---
- General Info Date of Service: 11/17/16 Functional Status: Reports: Pain Controlled, Tolerating Diet, Ambulating - Review of Systems General: Reports: Weakness Gastrointestinal: Denies: Abdominal Pain Systems Review Comment:: No acute events overnight. Still not having any abdominal pain. Ileostomy appears to be functioning well. No fevers. Moderate elevation of blood sugars and significant elevation of blood pressure which has been trending down. No complaints of headache or blurry vision. Respiratory status stable and strength slowly improving. - Patient Data Vitals - Most Recent: Last Vital Signs Temp 36.8 C 11/17/16 07:51 Pulse 75 11/17/16 08:57 Resp 22 H 11/17/16 07:51 BP 199/70 H 11/17/16 08:57 Pulse Ox 99 11/17/16 07:51 Weight - Most Recent: 91.1 kg I&O - Last 24 Hours: Intake & Output 11/16/16 11/17/16 11/17/16 22:59 06:59 14:59 Intake Total 1710 1038 360 Output Total 3315 1095 370 Balance -1605 -57 -10 Lab Results Last 24 Hours: Laboratory Results - last 24 hr 11/17/16 11/17/16 Range/Units 04:26 04:26 WBC 8.5 (4.5-11.0) K/uL RBC 3.80 (3.30-5.50) M/uL Hgb 10.3 L (12.0-15.0) g/dL Hct 32.7 L (36.0-48.0) % MCV 86 (80-98) fL MCH 27 (27-31) pg MCHC 32 (32-36) % Plt Count 296 (150-400) K/uL Sodium 138 L (140-148) mmol/L Potassium 3.8 (3.6-5.2) mmol/L Chloride 104 (100-108) mmol/L Carbon Dioxide 29 (21-32) mmol/L Anion Gap 8.8 (5.0-14.0) mmol/L BUN 26 H (7-18) mg/dL Creatinine 1.5 H (0.6-1.0) mg/dL Est Cr Clr Drug Dosing 21.11 mL/min Estimated GFR (MDRD) 33 L (>60) Glucose 366 H (74-106) mg/dL Calcium 8.5 (8.5-10.1) mg/dL Phosphorus 3.9 (2.5-4.9) mg/dL Magnesium 1.8 (1.8-2.4) mg/dL [id number] Pept 2834 H (5-450) pg/mL Med Orders - Current: Current Medications Hydrocodone Bitart/Acetaminophen ([place] 325-5 Mg) 1 - 2 tab PO Q4H PRN PRN Reason: PAIN Aspirin (Halfprin) 81 mg PO DAILY [facility] Last Admin: 11/17/16 08:58 Dose: 81 mg Benzocaine/Menthol (Cepacol Sore Throat) 1 lozenge MUCMEM Q1H PRN PRN Reason: Sore Throat Bisacodyl (Dulcolax) 5 mg PO DAILY PRN PRN Reason: Constipation Carvedilol (Coreg) 3.125 mg PO BID [facility] Last Admin: 11/17/16 08:57 Dose: 3.125 mg Diphenhydramine HCl (Benadryl) 50 mg IVPUSH Q4H PRN PRN Reason: Itching Docusate Sodium (Colace) 100 mg PO BID PRN PRN Reason: Constipation Furosemide (Lasix) 20 mg IV Q10H [facility] Stop: 11/17/16 19:01 Last Admin: 11/17/16 08:57 Dose: 20 mg Piperacillin Sod/Tazobactam (Sod 2.25 gm/ Sodium Chloride) 50 mls @ 100 mls/hr IV Q6H [facility] Last Admin: 11/17/16 08:12 Dose: 100 mls/hr Dextrose/Lactated Ringer's (Dextrose 5%-Lactated Ringers) 1,000 mls @ 25 mls/ hr IV ASDIRECTED [facility] Last Admin: 11/15/16 08:19 Dose: 25 mls/hr Multivitamins/Minerals 10 ml/Chromium/Copper/Manganese/Seleni/Zn 1 ml/ Amino Ac/ Electrol/Dextrose/Calcium 1,011 mls @ 60 mls/hr IV .BY DURATION [facility] Stop: 11/17/16 12:30 Amino Ac/Electrol/Dextrose/Calcium (Clinimix E 15) 1,000 mls @ 60 mls/hr IV .BY DURATION [facility] Stop: 11/17/16 12:30 Last Admin: 11/16/16 19:58 Dose: 60 mls/hr Albumin Human (Albumin 25%) 25 gm in 100 mls @ 25 mls/hr IV Q24H [facility] Stop: 11/19/16 13:59 Last Admin: 11/16/16 10:26 Dose: 25 mls/hr Potassium Chloride 40 meq/ (Premix) 100 mls @ 25 mls/hr IV ONETIME ONE Stop: 11/17/16 11:59 Last Admin: 11/17/16 08:11 Dose: 25 mls/hr Multivitamins/Minerals 10 ml/Chromium/Copper/Manganese/Seleni/Zn 1 ml/ Amino Ac/ Electrol/Dextrose/Calcium 1,011 mls @ 40 mls/hr IV .BY DURATION [facility] Amino Ac/Electrol/Dextrose/Calcium (Clinimix E /15) 1,000 mls @ 40 mls/hr IV .BY DURATION [facility] Insulin Aspart (Novolog) 0 unit SUBCUT QIDACANDBED [facility] PRN Reason: Protocol Last Admin: 11/17/16 07:47 Dose: 15 units Insulin Detemir (Levemir) 15 unit SUBCUT BID [facility] Last Admin: 11/17/16 09:02 Dose: 15 units Levetiracetam (Keppra) 250 mg PO BID [facility] Last Admin: 11/17/16 08:58 Dose: 250 mg Metoclopramide HCl (Reglan) 10 mg IV Q6H PRN PRN Reason: Nausea Senna/Docusate Sodium (Senna Plus) 1 tab PO BID PRN PRN Reason: Constipation Valsartan (Diovan) 80 mg PO DAILY [facility] Zolpidem Tartrate (Ambien) 5 mg PO BEDTIME PRN PRN Reason: Insomnia Discontinued Medications Carvedilol (Coreg) 1.5625 mg PO BID [facility] Last Admin: 11/16/16 08:27 Dose: 1.5625 mg Dexamethasone (Dexamethasone) Confirm Administered Dose 4 mg .ROUTE .STK-MED ONE Stop: 11/13/16 05:27 Ephedrine Sulfate (Ephedrine Sulfate) Confirm Administered Dose 50 mg .ROUTE .STK-MED ONE Stop: 11/13/16 05:57 Fentanyl (Sublimaze) Confirm Administered Dose 100 mcg .ROUTE .STK-MED ONE Stop: 11/14/16 08:48 Fentanyl Citrate (Fentanyl 0.05 Mg/Ml Vial) Confirm Administered Dose 50 mcg .ROUTE .[facility]-MED ONE Stop: 11/13/16 05:31 Fentanyl Citrate (Fentanyl In Ns 20 Mcg/Ml 30 Ml Industrial [employer]) 0 mcg IV ASDIRECTED PRN; Protocol PRN Reason: PAIN Last Admin: 11/17/16 01:20 Dose: 600 mcg Furosemide (Lasix) 10 mg IVPUSH ONETIME ONE Stop: 11/14/16 09:51 Last Admin: 11/14/16 12:16 Dose: 10 mg Furosemide (Lasix) 20 mg IV Q6H [facility] Stop: 11/16/16 15:31 Last Admin: 11/16/16 15:19 Dose: 20 mg Furosemide (Lasix) 20 mg IVPUSH ONETIME ONE Stop: 11/16/16 22:01 Last Admin: 11/16/16 21:28 Dose: 20 mg Glycopyrrolate (Robinul) Confirm Administered Dose 1 mg .ROUTE .[facility] ONE Stop: 11/13/16 05:27 Heparin Sodium (Porcine) (Heparin Lock Flush 100 Units/Ml) Confirm Administered Dose 1,000 units .ROUTE .[facility]-MED ONE Stop: 11/14/16 08:23 Last Admin: 11/14/16 09:29 Dose: 1,000 units Hydromorphone HCl (Dilaudid) 0.5 mg IVPUSH ONETIME ONE Stop: 11/13/16 02:06 Last Admin: 11/13/16 02:18 Dose: 0.5 mg Sodium Chloride (Normal Saline) 1,000 mls @ 200 mls/hr IV ASDIRECTED [facility] Last Admin: 11/13/16 02:19 Dose: 200 mls/hr Metronidazole (Flagyl 500 Mg In Ns 100 Ml) Confirm Administered Dose 100 mls @ as directed .ROUTE .[facility]-MED ONE Stop: 11/13/16 05:39 Sodium Chloride (Normal Saline) 1,000 mls @ 125 mls/hr IV ASDIRECTED [facility] Last Admin: 11/15/16 07:45 Dose: 125 mls/hr Cefazolin Sodium 2 gm/ Sodium (Chloride) 100 mls @ 100 mls/hr IV Q8H [facility] Stop: 11/13/16 16:59 Piperacillin/Tazobactam/ (Dextrose 3.375 gm/ Premix) 50 mls @ 100 mls/hr IV Q6H [facility] Last Admin: 11/13/16 09:05 Dose: 100 mls/hr Sodium Chloride (Normal Saline) 500 mls @ 500 mls/hr IV .BOLUS ONE Stop: 11/13/16 23:12 Last Admin: 11/13/16 22:27 Dose: 500 mls/hr Sodium Chloride (Normal Saline) 500 mls @ 500 mls/hr IV .BOLUS ONE Stop: 11/14/16 07:11 Last Admin: 11/14/16 06:27 Dose: 500 mls/hr Multivitamins/Minerals 10 ml/Chromium/Copper/Manganese/Seleni/Zn 1 ml/ Amino Ac/ Electrol/Dextrose/Calcium 1,011 mls @ 60 mls/hr IV .BY DURATION [facility] Stop: 11/15/16 23:59 Last Admin: 11/15/16 10:53 Dose: 60 mls/hr Amino Ac/Electrol/Dextrose/Calcium (Clinimix E 5/15) 1,000 mls @ 60 mls/hr IV .BY DURATION [facility] Stop: 11/15/16 23:59 Multivitamins/Minerals 10 ml/Chromium/Copper/Manganese/Seleni/Zn 1 ml/ Amino Ac/ Electrol/Dextrose/Calcium 1,011 mls @ 60 mls/hr IV .BY DURATION [facility] Stop: 11/16/16 18:00 Last Admin: 11/16/16 03:25 Dose: 60 mls/hr Amino Ac/Electrol/Dextrose/Calcium (Clinimix E 5/15) 1,000 mls @ 60 mls/hr IV .BY DURATION [facility] Stop: 11/16/16 18:00 Potassium Phosphate 15 mmole/ (Sodium Chloride) 105 mls @ 35 mls/hr IV Q3H JOHN Stop: 11/16/16 16:29 Last Admin: 11/16/16 12:37 Dose: 35 mls/hr Insulin Aspart (Novolog) 0 unit SUBCUT QIDACANDBED [facility] PRN Reason: Protocol Last Admin: 11/16/16 17:06 Dose: 5 units Insulin Detemir (Levemir) 7 unit SUBCUT DAILY [facility] Last Admin: 11/16/16 08:33 Dose: 7 units Naloxone HCl (Narcan) 0.1 mg IV ASDIRECTED PRN PRN Reason: RESP Neostigmine Methylsulfate (Neostigmine) Confirm Administered Dose 5 mg .ROUTE .STK-MED ONE Stop: 11/13/16 05:27 Ondansetron HCl (Zofran) 4 mg IVPUSH ONETIME ONE Stop: 11/13/16 02:06 Last Admin: 11/13/16 02:17 Dose: 4 mg Ondansetron HCl (Zofran) Confirm Administered Dose 4 mg .ROUTE .STK-MED ONE Stop: 11/13/16 05:27 Propofol (Diprivan 20 Ml) Confirm Administered Dose 200 mg .ROUTE .STK-MED ONE Stop: 11/13/16 05:27 Propofol (Diprivan 20 Ml) Confirm Administered Dose 200 mg .ROUTE .STK-MED ONE Stop: 11/14/16 08:49 Rocuronium [place] (Zemuron) Confirm Administered Dose 50 mg .ROUTE .STK-MED ONE Stop: 11/13/16 05:27 Succinylcholine Chloride (Quelicin) Confirm Administered Dose 200 mg .ROUTE .STK -MED ONE Stop: 11/13/16 05:27 Valsartan (Diovan) 40 mg PO DAILY JOHN Last Admin: 11/17/16 08:57 Dose: 40 mg Valsartan (Diovan) 40 mg PO ONETIME ONE Stop: 11/17/16 10:01 - Exam Quality Assessment: Supplemental Oxygen General: Alert, Oriented, Cooperative, No Acute Distress Neck: Supple Lungs: Clear to Auscultation, Normal Respiratory Effort, Decreased Breath Sounds (mild at bases) Cardiovascular: Regular Rate, Regular Rhythm, Murmurs GI/Abdominal Exam: Normal Bowel Sounds, Soft, No Distention, Other (green/brown stool in ostomy ) Extremities: No Pedal Edema. No: Increased Warmth Skin: Warm, Dry Psy/Mental Status: Alert, Normal Affect Consult PN Assessment/Plan POD#: 4 Procedures: Procedures ASSAY OF MAGNESIUM (11/27/14) ASSAY THYROID STIM HORMONE (11/27/14) C-REACTIVE PROTEIN (11/27/14) COMPLETE CBC AUTOMATED (11/27/14) COMPLETE CBC W/AUTO DIFF WBC (11/27/14) COMPREHEN METABOLIC PANEL (11/27/14) CT HEAD/BRAIN W/O DYE (01/06/15) ECHO GUIDE FOR BIOPSY (07/26/16) EMERGENCY DEPT VISIT (05/11/15) EMERGENCY DEPT VISIT (05/11/15) EMERGENCY DEPT VISIT (01/06/15) EMERGENCY DEPT VISIT (01/06/15) EMERGENCY DEPT VISIT (11/27/14) EXTRACRANIAL BILAT STUDY (11/03/15) GAIT TRAINING THERAPY (11/27/14) GLUCOSE BLOOD TEST (07/26/16) INITIAL OBSERVATION CARE (11/27/14) LYME DISEASE ANTIBODY (11/27/14) METABOLIC PANEL TOTAL CA (11/27/14) OBSERVATION CARE DISCHARGE (11/27/14) PT EVALUATION (11/27/14) RBC SED RATE NONAUTOMATED (11/27/14) ROUTINE VENIPUNCTURE (11/27/14) SUBSEQUENT OBSERVATION CARE (11/27/14) TEMPORAL ARTERY PROCEDURE (07/26/16) THER/PROPH/DIAG INJ IV PUSH (11/27/14) THER/PROPH/DIAG INJ SC/IM (11/27/14) THERAPEUTIC ACTIVITIES (11/27/14) THERAPEUTIC EXERCISES (11/27/14) TX/PRO/DX INJ NEW DRUG ADDON (11/27/14) TX/PRO/DX INJ SAME DRUG VEGETABLE PICKER (11/27/14) URINALYSIS AUTO W/SCOPE (11/27/14) VARICELLA-ZOSTER ANTIBODY (11/27/14) VITAMIN B-12 (11/27/14) (1) Pneumatosis intestinalis of large intestine SNOMED Code(s): 244068720 Code(s): K63.89 - OTHER SPECIFIED DISEASES OF INTESTINE Current Visit: Yes (2) Stage III chronic kidney disease SNOMED Code(s): 021929905 Code(s): N18.3 - CHRONIC KIDNEY DISEASE, STAGE 3 (MODERATE) Current Visit: Yes (3) Diabetes 1.5, managed as type 2 SNOMED Code(s): 549421901 Code(s): E13.9 - OTHER SPECIFIED DIABETES MELLITUS WITHOUT COMPLICATIONS Priority: Medium Current Visit: No (4) CAD (coronary artery disease), [place] coronary artery SNOMED Code(s): 8449244177146 Code(s): I25.10 - ATHSCL HEART DISEASE OF [place] CORONARY ARTERY W/O ANG PCTRS Priority: Low Current Visit: No Qualifiers: [place] vs. transplanted heart: [place] heart Associated angina: without angina Qualified Code(s): I25.10 - Atherosclerotic heart disease of [place] coronary artery without angina pectoris Problem List Initiated/Reviewed/Updated: Yes My Orders Last 24 Hours: My Active Orders 11/16/16 21:00 Carvedilol [Coreg] 3.125 mg PO BID 11/16/16 21:03 Communication Order [RC] PRN Communication Order [RC] PRN 11/16/16 21:10 Insulin Aspart [NovoLOG] See Protocol SUBCUT QIDACANDBED 11/17/16 09:00 Insulin Detemir [Levemir] 15 unit SUBCUT BID 11/17/16 Breakfast Consistent Carbohydrate Diet [DIET] 11/18/16 09:00 Valsartan [Diovan] 80 mg PO DAILY Plan: Assessment and plan - 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 Pathology pending. Clinically doing well with minimal pain and ongoing ostomy output -Postop cares per surgical team Accelerated hypertension - blood pressure rising despite changes in carvedilol and diuresis yesterday. Patient is asymptomatic but pressures are significantly elevated. -Continue increased dose of carvedilol -Increase valsartan -Continue diuresis Insulin-dependent diabetes mellitus - blood sugars significantly elevated with TPN though seem to be getting a little better with high-dose sliding scale. -high-dose sliding scale insulin -Continue long-acting insulin -Agree with extra insulin in the TPN Coronary artery disease - History of CABG a few years ago. No active ischemic symptoms and clinically stable. -Continue medical management including beta cassie Stage III chronic kidney disease - creatinine level stable and near baseline. -Close monitoring of urine output -Labs in the morning Disposition - anticipate discharge to home with home care versus the [facility] after the hospital stay. patient is being transferred out of the intensive care unit today. Fernando Milan M.D.
[2016-11-17] MEDS ORDERED: Acetaminophen 325 MG Tab PO PRN (11:51)
[2016-11-17] MEDS: Sodium Chloride 0.65% Nasal Spray 45 ML Bottle NASBOTH SCH ×3 (11:58→21:36)
--- NOTE | 2016-11-17 13:41 | PN ---
DATE OF SERVICE: 11/15/2016 The patient has been afebrile with stable vital signs. Her hemoglobin is up to 10 after transfusion of 2 units yesterday and clinically, she appears to be doing well. Her ileostomy given this, we will start full-liquid diet today and also start some TPN running set at about 60 mL an hour and continue with maximum activity and work with pulmonary toilet. We will need to have discharge planning begin working on the situation and begin some ostomy training as well. Erasto Charles MD /[id number]
--- NOTE | 2016-11-17 13:53 | PN ---
DATE OF SERVICE: 11/16/2016 The patient has been afebrile with stable vital signs. She has a little crackling this morning. Her BNP is fairly high at 3600. We will give her some IV Lasix, otherwise I think we can go up to a regular diet. Her ostomy continues to function satisfactorily. Labs showed no major problems. Magnesium is still pending. We will continue the present TPN fast pacing near the lower end of normal 2.5. We will give her some additional K-Phos today as well and otherwise she is receiving some ostomy training. It is possible she may be discharged to her daughter's home in [place] which will likely be sometime later in the next week. Erasto Charles MD /[id number]
[2016-11-17] MEDS ORDERED: 1: AA 5%/Calcium/D15W/Lytes 1,000 ML with MVI, Adult with Vitamin K 10 ML, Chromium/Copp IV SCH ×3 (14:30)
--- NOTE | 2016-11-17 16:17 | PN ---
DATE OF SERVICE: 11/17/2016 The patient has been afebrile. She remains persistently quite hypertensive with systolic pressures as high as around 200, this is despite a 2600 mL diuresis yesterday. Her BNP is still somewhat high, and we will continue to diuresis her today, but with that amount of diuresis and blood pressure staying high, the patient will probably need some additional treatment for the hypertension. We will ask Psychiatry to see the patient regarding that issue. Otherwise, we will switch over to oral pain medication. Her blood sugars are running high. We will go from the 7 units of Levemir once daily to 15 units b.i.d. We will back down the TPN at 40 mL around 700 mL orally. Give her some additional KCl today as well. She will be transferred to second floor and discharge planning will be an ongoing process with the patient possibly going home with the daughter in [facility]. We will continue to work with ostomy training with both the patient and the daughter. Erasto Charles MD /[id number]
[2016-11-17] MEDS ORDERED: Insulin Detemir 100 Units/ML 3 ML Pen SUBCUT SCH (21:00)
[2016-11-18] MEDS: Piperacillin/Tazobactam 2.25 GM in Sodium Chloride 0.9% 50 ML IV SCH ×2 (02:52→07:33)
[2016-11-18] MEDS: Sodium Chloride 0.65% Nasal Spray 45 ML Bottle NASBOTH SCH ×4 (06:24→22:09)
[2016-11-18] MEDS: Insulin Aspart 100 Units/ML 3 ML Pen SUBCUT SCH ×4 (08:48→22:07)
[2016-11-18] MEDS: Insulin Detemir 100 Units/ML 3 ML Pen SUBCUT SCH ×2 (08:50→22:07)
--- NOTE | 2016-11-18 09:17 | PN ---
DATE OF SERVICE: 11/18/2016 SUBJECTIVE: The patient is doing very well today. Pain is 0/10. No nausea, vomiting, shortness of breath, or chest pain. Ostomy is functioning well. OBJECTIVE: VITAL SIGNS: Stable. CARDIOVASCULAR: Regular rhythm and rate. RESPIRATORY: Lungs clear to consultation bilaterally. SKIN: Dressing, incision no abnormality. ASSESSMENT: Status post subtotal colectomy. PLAN: 1. We will stop her TPN as she is tolerating diet. 2. We will remove the Herbert catheter to reduce infection risk. 3. Discharge planning will continue work on discharge. As far as discharge disposition, the patient's pain is controlled. She is tolerating diet, so she may be discharged as soon as which is basically available. 4. Respiratory status. She continues to have chronic congestive heart failure/COPD issues but she seems fluid stable at this point. 5. Hypertension and general issues, we continue to be managed by primary care and hospitalist care. Adin Miller MD /[id number]
[2016-11-18] MEDS ORDERED: Magnesium Sulfate/Water 2 GM in Premix Bag 1 BAG IV ONE (09:30)
[2016-11-18] MEDS: Aspirin 81 MG Tab.EC PO SCH (09:32)
[2016-11-18] MEDS: Carvedilol 3.125 MG Tab PO SCH ×2 (09:33→20:32)
[2016-11-18] MEDS: levETIRAcetam 250 MG Tab PO SCH ×2 (09:34→20:31)
--- NOTE | 2016-11-18 15:49 | PCM.CONSN ---
- General Info Date of Service: 11/18/16 Functional Status: Reports: Pain Controlled, Tolerating Diet, Ambulating - Review of Systems General: Reports: Weakness. Denies: Fever, Chills Pulmonary: Reports: No Symptoms Cardiovascular: Reports: No Symptoms Gastrointestinal: Reports: Abdominal Pain. Denies: Diarrhea, Difficulty Swallowing, Nausea, Vomiting Musculoskeletal: Reports: No Symptoms Systems Review Comment:: Ms. Goddard has improved significantly over the past few days. Appetite is been good and she is been up walking in the halls. Vital signs are stable and blood pressure is under better control. - Patient Data Vitals - Most Recent: Last Vital Signs Temp 98.0 F 11/18/16 15:00 Pulse 72 11/18/16 15:00 Resp 18 11/18/16 15:00 BP 165/63 H 11/18/16 15:00 Pulse Ox 93 L 11/18/16 15:00 Weight - Most Recent: 200 lb 13.458 oz I&O - Last 24 Hours: Intake & Output 11/18/16 11/18/16 11/18/16 06:59 14:59 22:59 Intake Total 1142 1774 Output Total 2014 330 Balance -873 1444 Lab Results Last 24 Hours: Laboratory Results - last 24 hr 11/18/16 11/18/16 Range/Units 04:37 04:37 WBC 9.8 (4.5-11.0) K/uL RBC 3.61 (3.30-5.50) M/uL Hgb 9.9 L (12.0-15.0) g/dL Hct 31.2 L (36.0-48.0) % MCV 86 (80-98) fL MCH 27 (27-31) pg MCHC 32 (32-36) % Plt Count 288 (150-400) K/uL Sodium 140 (140-148) mmol/L Potassium 3.8 (3.6-5.2) mmol/L Chloride 102 (100-108) mmol/L Carbon Dioxide 31 (21-32) mmol/L Anion Gap 6.6 (5.0-14.0) mmol/L BUN 31 H (7-18) mg/dL Creatinine 1.4 H (0.6-1.0) mg/dL Est Cr Clr Drug Dosing 22.62 mL/min Estimated GFR (MDRD) 36 L (>60) Glucose 226 H (74-106) mg/dL Calcium 8.2 L (8.5-10.1) mg/dL Phosphorus 4.4 (2.5-4.9) mg/dL Magnesium 1.5 L (1.8-2.4) mg/dL Med Orders - Current: Current Medications Acetaminophen (Tylenol) 650 mg PO Q4H PRN PRN Reason: Pain/Fever Hydrocodone Bitart/Acetaminophen ([place] 325-5 Mg) 1 - 2 tab PO Q4H PRN PRN Reason: PAIN Aspirin (Halfprin) 81 mg PO DAILY [facility] Last Admin: 11/18/16 09:32 Dose: 81 mg Benzocaine/Menthol (Cepacol Sore Throat) 1 lozenge MUCMEM Q1H PRN PRN Reason: Sore Throat Bisacodyl (Dulcolax) 5 mg PO DAILY PRN PRN Reason: Constipation Carvedilol (Coreg) 3.125 mg PO BID [facility] Last Admin: 11/18/16 09:33 Dose: 3.125 mg Diphenhydramine HCl (Benadryl) 50 mg IVPUSH Q4H PRN PRN Reason: Itching Docusate Sodium (Colace) 100 mg PO BID PRN PRN Reason: Constipation Heparin Sodium (Porcine) (Heparin Lock Flush 100 Units/Ml) 500 units FLUSH ASDIRECTED PRN PRN Reason: flush entral line Last Admin: 11/18/16 14:34 Dose: 500 units Albumin Human (Albumin 25%) 25 gm in 100 mls @ 25 mls/hr IV Q24H [facility] Stop: 11/19/16 13:59 Last Admin: 11/18/16 09:34 Dose: 25 mls/hr Insulin Aspart (Novolog) 0 unit SUBCUT QIDACANDBED [facility] PRN Reason: Protocol Last Admin: 11/18/16 11:43 Dose: 6 units Insulin Detemir (Levemir) 15 unit SUBCUT BID [facility] Last Admin: 11/18/16 08:50 Dose: 15 units Levetiracetam (Keppra) 250 mg PO BID [facility] Last Admin: 11/18/16 09:34 Dose: 250 mg Metoclopramide HCl (Reglan) 10 mg IV Q6H PRN PRN Reason: Nausea Senna/Docusate Sodium (Senna Plus) 1 tab PO BID PRN PRN Reason: Constipation Sodium Chloride ([place] Nasal [place]) 0 ml NASBOTH QID [facility] Last Admin: 11/18/16 09:48 Dose: 1 spray Valsartan (Diovan) 80 mg PO DAILY [facility] Last Admin: 11/18/16 09:32 Dose: 80 mg Zolpidem Tartrate (Ambien) 5 mg PO BEDTIME PRN PRN Reason: Insomnia Discontinued Medications Carvedilol (Coreg) 1.5625 mg PO BID [facility] Last Admin: 11/16/16 08:27 Dose: 1.5625 mg Dexamethasone (Dexamethasone) Confirm Administered Dose 4 mg .ROUTE .STK-MED ONE Stop: 11/13/16 05:27 Ephedrine Sulfate (Ephedrine Sulfate) Confirm Administered Dose 50 mg .ROUTE .STK-MED ONE Stop: 11/13/16 05:57 Fentanyl (Sublimaze) Confirm Administered Dose 100 mcg .ROUTE .STK-MED ONE Stop: 11/14/16 08:48 Fentanyl Citrate (Fentanyl 0.05 Mg/Ml Vial) Confirm Administered Dose 50 mcg .ROUTE .STK-MED ONE Stop: 11/13/16 05:31 Fentanyl Citrate (Fentanyl In Ns 20 Mcg/Ml 30 Ml [facility] [employer]) 0 mcg IV ASDIRECTED PRN; Protocol PRN Reason: PAIN Last Admin: 11/17/16 01:20 Dose: 600 mcg Furosemide (Lasix) 10 mg IVPUSH ONETIME ONE Stop: 11/14/16 09:51 Last Admin: 11/14/16 12:16 Dose: 10 mg Furosemide (Lasix) 20 mg IV Q6H [facility] Stop: 11/16/16 15:31 Last Admin: 11/16/16 15:19 Dose: 20 mg Furosemide (Lasix) 20 mg IVPUSH ONETIME ONE Stop: 11/16/16 22:01 Last Admin: 11/16/16 21:28 Dose: 20 mg Furosemide (Lasix) 20 mg IV Q10H [facility] Stop: 11/17/16 19:01 Last Admin: 11/17/16 19:53 Dose: 20 mg Glycopyrrolate (Robinul) Confirm Administered Dose 1 mg .ROUTE .STK-MED ONE Stop: 11/13/16 05:27 Heparin Sodium (Porcine) (Heparin Lock Flush 100 Units/Ml) Confirm Administered Dose 1,000 units .ROUTE .STK-MED ONE Stop: 11/14/16 08:23 Last Admin: 11/14/16 09:29 Dose: 1,000 units Hydromorphone HCl (Dilaudid) 0.5 mg IVPUSH ONETIME ONE Stop: 11/13/16 02:06 Last Admin: 11/13/16 02:18 Dose: 0.5 mg Sodium Chloride (Normal Saline) 1,000 mls @ 200 [facility]ls[facility] Last Admin: 11/13/16 02:19 Dose: 200 mls/hr Metronidazole (Flagyl 500 Mg In Ns 100 Ml) Confirm Administered Dose 100 mls @ as directed .ROUTE .[facility]-MED ONE Stop: 11/13/16 05:39 Sodium Chloride (Normal Saline) 1,000 mls @ 125 [facility]ls[facility] Last Admin: 11/15/16 07:45 Dose: 125 mls/hr Cefazolin Sodium 2 gm/ Sodium (Chloride) 100 mls @ 100 mls/hr IV Q8H [facility] Stop: 11/13/16 16:59 Piperacillin/Tazobactam/ (Dextrose 3.375 gm/ Premix) 50 mls @ 100 mls/hr IV Q6H [facility] Last Admin: 11/13/16 09:05 Dose: 100 mls/hr Piperacillin Sod/Tazobactam (Sod 2.25 gm/ Sodium Chloride) 50 mls @ 100 mls/hr IV Q6H [facility] Last Admin: 11/18/16 07:33 Dose: 100 mls/hr Sodium Chloride (Normal Saline) 500 mls @ 500 mls/hr IV .BOLUS ONE Stop: 11/13/16 23:12 Last Admin: 11/13/16 22:27 Dose: 500 mls/hr Sodium Chloride (Normal Saline) 500 mls @ 500 mls/hr IV .BOLUS ONE Stop: 11/14/16 07:11 Last Admin: 11/14/16 06:27 Dose: 500 mls/hr Dextrose/Lactated Ringer's (Dextrose 5%-Lactated Ringers) 1,000 mls @ 25 mls/ [facility] Last Admin: 11/15/16 08:19 Dose: 25 mls/hr Multivitamins/Minerals 10 ml/Chromium/Copper/Manganese/Seleni/Zn 1 ml/ Amino Ac/ Electrol/Dextrose/Calcium 1,011 mls @ 60 mls/hr IV .BY DURATION [facility] Stop: 11/15/16 23:59 Last Admin: 11/15/16 10:53 Dose: 60 mls/hr Amino Ac/Electrol/Dextrose/Calcium (Clinimix E 5/15) 1,000 mls @ 60 mls/hr IV .BY DURATION [facility] Stop: 11/15/16 23:59 Multivitamins/Minerals 10 ml/Chromium/Copper/Manganese/Seleni/Zn 1 ml/ Amino Ac/ Electrol/Dextrose/Calcium 1,011 mls @ 60 mls/hr IV .BY DURATION [facility] Stop: 11/16/16 18:00 Last Admin: 11/16/16 03:25 Dose: 60 mls/hr Amino Ac/Electrol/Dextrose/Calcium (Clinimix E 5/15) 1,000 mls @ 60 mls/hr IV .BY DURATION [facility] Stop: 11/16/16 18:00 Multivitamins/Minerals 10 ml/Chromium/Copper/Manganese/Seleni/Zn 1 ml/ Amino Ac/ Electrol/Dextrose/Calcium 1,011 mls @ 60 mls/hr IV .BY DURATION [facility] Stop: 11/17/16 12:30 Amino Ac/Electrol/Dextrose/Calcium (Clinimix E 5/15) 1,000 mls @ 60 mls/hr IV .BY DURATION [facility] Stop: 11/17/16 12:30 Last Admin: 11/16/16 19:58 Dose: 60 mls/hr Potassium Phosphate 15 mmole/ (Sodium Chloride) 105 mls @ 35 mls/hr IV Q3H [facility] Stop: 11/16/16 16:29 Last Admin: 11/16/16 12:37 Dose: 35 mls/hr Potassium Chloride 40 meq/ (Premix) 100 mls @ 25 mls/hr IV ONETIME ONE Stop: 11/17/16 11:59 Last Admin: 11/17/16 08:11 Dose: 25 mls/hr Multivitamins/Minerals 10 ml/Chromium/Copper/Manganese/Seleni/Zn 1 ml/ Amino Ac/ Electrol/Dextrose/Calcium 1,011 mls @ 40 mls/hr IV .BY DURATION [facility] Last Admin: 11/17/16 14:27 Dose: 40 mls/hr Amino Ac/Electrol/Dextrose/Calcium (Clinimix E 08/26) 1,000 mls @ 40 mls/hr IV .BY DURATION [facility] Magnesium Sulfate 2 gm/ Premix 50 mls @ 25 mls/hr IV ONETIME ONE Stop: 11/18/16 11:29 Last Admin: 11/18/16 09:34 Dose: 25 mls/hr Insulin Aspart (Novolog) 0 unit SUBCUT QIDACANDBED [facility] PRN Reason: Protocol Last Admin: 11/17/16 14:54 Dose: Not Given Insulin Detemir (Levemir) 7 unit SUBCUT DAILY [facility] Last Admin: 11/16/16 08:33 Dose: 7 units Naloxone HCl (Narcan) 0.1 mg IV ASDIRECTED PRN PRN Reason: RESP Neostigmine Methylsulfate (Neostigmine) Confirm Administered Dose 5 mg .ROUTE .STK-MED ONE Stop: 11/13/16 05:27 Ondansetron HCl (Zofran) 4 mg IVPUSH ONETIME ONE Stop: 11/13/16 02:06 Last Admin: 11/13/16 02:17 Dose: 4 mg Ondansetron HCl (Zofran) Confirm Administered Dose 4 mg .ROUTE .STK-MED ONE Stop: 11/13/16 05:27 Propofol (Diprivan 20 Ml) Confirm Administered Dose 200 mg .ROUTE .STK-MED ONE Stop: 11/13/16 05:27 Propofol (Diprivan 20 Ml) Confirm Administered Dose 200 mg .ROUTE .STK-MED ONE Stop: 11/14/16 08:49 Rocuronium [place] (Zemuron) Confirm Administered Dose 50 mg .ROUTE .STK-MED ONE Stop: 11/13/16 05:27 Succinylcholine Chloride (Quelicin) Confirm Administered Dose 200 mg .ROUTE .STK -MED ONE Stop: 11/13/16 05:27 Valsartan (Diovan) 40 mg PO DAILY [facility] Last Admin: 11/17/16 08:57 Dose: 40 mg Valsartan (Diovan) 40 mg PO ONETIME ONE Stop: 11/17/16 10:01 Last Admin: 11/17/16 10:10 Dose: 40 mg - Exam Quality Assessment: DVT Prophylaxis General: Alert, Oriented, Cooperative, No Acute Distress Lungs: Clear to Auscultation, Normal Respiratory Effort Cardiovascular: Regular Rate, Regular Rhythm, No Murmurs GI/Abdominal Exam: Normal Bowel Sounds, Soft, Tender. No: Distended, Guarding, Rigid, Rebound Consult PN Assessment/Plan Procedures: Procedures ASSAY OF MAGNESIUM (11/27/14) ASSAY THYROID STIM HORMONE (11/27/14) C-REACTIVE PROTEIN (11/27/14) COMPLETE CBC AUTOMATED (11/27/14) COMPLETE CBC W/AUTO DIFF WBC (11/27/14) COMPREHEN METABOLIC PANEL (11/27/14) CT HEAD/BRAIN W/O DYE (01/06/15) ECHO GUIDE FOR BIOPSY (07/26/16) EMERGENCY DEPT VISIT (05/11/15) EMERGENCY DEPT VISIT (05/11/15) EMERGENCY DEPT VISIT (01/06/15) EMERGENCY DEPT VISIT (01/06/15) EMERGENCY DEPT VISIT (11/27/14) EXTRACRANIAL BILAT STUDY (11/03/15) GAIT TRAINING THERAPY (11/27/14) GLUCOSE BLOOD TEST (07/26/16) INITIAL OBSERVATION CARE (11/27/14) LYME DISEASE ANTIBODY (11/27/14) METABOLIC PANEL TOTAL CA (11/27/14) OBSERVATION CARE DISCHARGE (11/27/14) PT EVALUATION (11/27/14) RBC SED RATE NONAUTOMATED (11/27/14) ROUTINE VENIPUNCTURE (11/27/14) SUBSEQUENT OBSERVATION CARE (11/27/14) TEMPORAL ARTERY PROCEDURE (07/26/16) THER/PROPH/DIAG INJ IV PUSH (11/27/14) THER/PROPH/DIAG INJ SC/IM (11/27/14) THERAPEUTIC ACTIVITIES (11/27/14) THERAPEUTIC EXERCISES (11/27/14) TX/PRO/DX INJ NEW DRUG ADDON (11/27/14) TX/PRO/DX INJ SAME DRUG CERTIFIED PATHOLOGY ASSISTANT (11/27/14) URINALYSIS AUTO W/SCOPE (11/27/14) VARICELLA-ZOSTER ANTIBODY (11/27/14) VITAMIN B-12 (11/27/14) Problem List Initiated/Reviewed/Updated: Yes My Orders Last 24 Hours: My Active Orders 11/18/16 15:40 Convert IV to Saline Lock [OM.PC] Routine Plan: Assessment and plan - 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 Pathology pending. Clinically doing well with minimal pain and ongoing ostomy output -Postop cares per surgical team Accelerated hypertension - pressure under better control with changes made in medical therapy yesterday by Dr. Milan. -Continue increased dose of carvedilol -Increase valsartan -Continue diuresis Insulin-dependent diabetes mellitus - percent or better control with current management -high-dose sliding scale insulin -Continue long-acting insulin Coronary artery disease - History of CABG a few years ago. No active ischemic symptoms and clinically stable. -Continue medical management including beta cassie Stage III chronic kidney disease - creatinine level stable and near baseline. -Close monitoring of urine output -Labs in the morning Disposition - anticipate discharge to home with home care versus the residential after the hospital stay. patient is being transferred out of the intensive care unit today.
--- NOTE | 2016-11-18 21:27 | PCM.SN ---
- Free Text/Narrative Note: time; 2111; call from [address] [place] [address]; Mrs. Goddard has had one void since victor cath removed at 10:00am. o: one incontinent void of approximately 100 cc, bladder scan urine 300 ml a; decreased voiding p; will continue to monitor, bladder scan at 2300.
[2016-11-19] MEDS: Sodium Chloride 0.65% Nasal Spray 45 ML Bottle NASBOTH SCH ×2 (05:31→10:14)
[2016-11-19 07:17] VITALS: BP 152/76
[2016-11-19] MEDS: Insulin Aspart 100 Units/ML 3 ML Pen SUBCUT SCH ×2 (08:07→11:30)
[2016-11-19] MEDS: Carvedilol 3.125 MG Tab PO SCH (10:09)
[2016-11-19] MEDS: Aspirin 81 MG Tab.EC PO SCH (10:11)
[2016-11-19] MEDS: levETIRAcetam 250 MG Tab PO SCH (10:12)
[2016-11-19] MEDS: Insulin Detemir 100 Units/ML 3 ML Pen SUBCUT SCH (10:12)
--- NOTE | 2016-11-19 16:51 | PN ---
DATE OF SERVICE: 11/19/2016 SUBJECTIVE: The patient is doing very well. Pain is well controlled. Ostomy output is good. No nausea, shortness of breath, or chest pain. Tolerating diet. OBJECTIVE: VITAL SIGNS: Stable CARDIOVASCULAR: Regular rhythm and rate. RESPIRATORY: Lungs are clear to auscultation bilaterally. ABDOMEN: Incision is healing well. Ostomy intact. ASSESSMENT: Status post subtotal colectomy. PLAN: The patient be discharged today. Please see discharge summary for further details. Adin Miller MD /[id number]
--- NOTE | 2016-11-19 18:53 | DISCH ---
DISCHARGE DIAGNOSIS: Status post total colectomy. 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 The patient did well postoperatively. She was kept in the intensive care unit and monitored for several days. The patient was never reintubated. The hospital service continued to adjust her medications with respect to blood pressure and her renal failure. compounded by her COPD, but did well with this. Prior to discharge, the patient's pain was well controlled. No nausea, vomiting, shortness of breath, or chest pain. Ostomy is functioning well. She was tolerating diet very well. She will be subsequently discharged to the intermediate. FOLLOWUP: Follow up with Surgery in 7 to 14 days. ACTIVITY: As tolerated.
== END 2016-11-19 12:35 | DRG 330 ==
LOC: JP.ED 01:46 → JP.SDS 05:34 → JP.ICU 05:40 → JP.SDS 05:50 → JP.ICU 07:56 → UNDOADMIN 07:56 → JP.2SS 11-17 10:15 → JP.ICU 11-17 10:15 → UNDODISIN 11-19 12:35
PROVIDERS: ADMIT Surgery; ATTEND Surgery
PROC: 0DNE0ZZ Release Large Intestine, Open Approach (ICD-10-PCS; principal; 2016-11-13)
PROC: 0DJD7ZZ Inspection of Lower Intestinal Tract, Via Natural or Artificial Opening (ICD-10-PCS; principal; 2016-11-13)
PROC: 0DBE0ZZ Excision of Large Intestine, Open Approach (ICD-10-PCS; principal; 2016-11-13)
PROC: 0D1B0Z4 Bypass Ileum to Cutaneous, Open Approach (ICD-10-PCS; principal; 2016-11-13)
PROC: 02HV33Z Insertion of Infusion Device into Superior Vena Cava, Percutaneous Approach (ICD-10-PCS; 2016-11-14)
PROC: 30233N1 Transfusion of Nonautologous Red Blood Cells into Peripheral Vein, Percutaneous Approach (ICD-10-PCS; 2016-11-14)
DX: K59.39 Other megacolon (principal); K57.32 Diverticulitis of large intestine without perforation or abscess without bleeding; I13.0 Hypertensive heart and chronic kidney disease with heart failure and stage 1 through stage 4 chronic kidney disease, or unspecified chronic kidney disease; R10.9 Unspecified abdominal pain; R14.0 Abdominal distension (gaseous); Z79.4 Long term (current) use of insulin; K63.89 Other specified diseases of intestine; I50.9 Heart failure, unspecified; N18.3 Chronic kidney disease, stage 3 (moderate); J44.9 Chronic obstructive pulmonary disease, unspecified; I25.10 Atherosclerotic heart disease of native coronary artery without angina pectoris; I25.2 Old myocardial infarction; Z86.73 Personal history of transient ischemic attack (TIA), and cerebral infarction without residual deficits; E11.22 Type 2 diabetes mellitus with diabetic chronic kidney disease; E78.00 Pure hypercholesterolemia, unspecified; Z87.440 Personal history of urinary (tract) infections; Z95.1 Presence of aortocoronary bypass graft; R33.9 Retention of urine, unspecified; Z96.649 Presence of unspecified artificial hip joint; Z79.82 Long term (current) use of aspirin; Z88.8 Allergy status to other drugs, medicaments and biological substances; D64.9 Anemia, unspecified
CPT/HCPCS: 36415; 36430; 71010; 71010-26; 74176; 80048; 80053; 81001; 82150; 82962; 83605; 83690; 83735; 83880; 84100; 84484; 85025; 85027; 85610; 86850; 86870; 86900; 86901; 86920; 86922; 87086; 88307; 93005; 93010; 96361; 96374; 96375; 97110-GP; 97116-GP; 97162-GP; 97530-GP; 99284; 99285-25; A9270-GY; C1894; J0330; J1100; J1170; J1642; J1940; J2405; J2543; J2704; J3010; J3475; J3480; J3490; J7030; J7040; J7042; J7050; P9016; P9017; P9047